=== PATIENT | female | born 1970 | race African-American/Black ===

== ENCOUNTER 2022-02-27 15:14 | Inpatient (IN) | payer MEDICARE, MEDICAID ==
[~2022-02-27] VITALS: Ht 162.6 cm; Wt 164.3 kg
[2022-02-27] MEDS ORDERED: INSULIN LANTUS (GLARGINE) 1 /0.01ml (100units/ml) SC ONE (16:00)
[2022-02-27] MEDS ORDERED: InsuLIN R (HUMAN) 100 UNITS in SODIUM CHL 0.9% 99 ML IV SCH ×2 (16:00→23:45)
[2022-02-27] MEDS: SODIUM CHLORIDE 0.9% 1,000 ML IV SCH ×3 (16:00→22:00)
[2022-02-27] MEDS ORDERED: DEXTROSE (50%) 50ML SYRG IV PRN ×2 (16:00→23:45)
[2022-02-27] MEDS: ACCU-CHEK COMFORT CURVE STRIP VI SCH ×5 (16:30→22:30)
[2022-02-27] MEDS ORDERED: MIDAZOLAM DRIP 50 mg/50mL 50 ML IV ONE (17:13)
[2022-02-27] MEDS ORDERED: ETOMIDATE (2MG/ML) 20ML VIAL IV ONE ×2 (17:13→17:15)
[2022-02-27] MEDS ORDERED: SUCCINYLCHOLINE CHLORIDE 20 MG/ML 10ML VIAL IV ONE ×2 (17:14→17:15)
[2022-02-27 17:20] VITALS: BP 111/54
[2022-02-27] MEDS ORDERED: PROPOFOL 100 ML IV ONE (17:34)
[2022-02-27 17:46] LABS: Basophils # (auto) 0.1 10 ^3/uL (0-0.2); Eosinophils # (auto) 0 10 ^3/uL (0-0.8); Eosinophils % (auto) 0.1 % (0.0-7.0); Monocytes # (auto) 1.1 10 ^3/uL (0-1.3)
[2022-02-27 17:47] LABS: Basophils % (auto) 0.5 % (0.0-2.0); Hematocrit 53.4 % (36.0-46.0); Hemoglobin 16.7 g/dL (12.2-16.2); Lymphocytes # (auto) 1.2 10 ^3/uL (0.4-5.4); Lymphocytes % (auto) 7.1 % (10.0-50.0); Mean Corpuscular Hemoglobin 28.8 pg (28.0-32.0); Mean Corpuscular Hgb Conc. 31.2 g/dL (32.0-36.0); Mean Corpuscular Volume 92.2 fL (80.0-100.0); Monocytes % (auto) 6.4 % (0.0-12.0); Neutrophils # (auto) 14.3 10 ^3/uL (1.6-8.6); Neutrophils % (auto) 85.9 % (37.0-80.0); Nucleated Red Blood Cells % 0.1 %; Red Cell Distribution Width 14.7 % (11.8-14.3); White Blood Cell 16.6 10^3/uL (4.4-10.8)
[2022-02-27] MEDS ORDERED: NOREPINEPHRINE 8 MG/250ML KIT 250 ML IV ONE ×2 (19:05→19:06)
[2022-02-27] MEDS: MIDAZOLAM DRIP 50 mg/50mL 50 ML IV SCH (19:35)
[2022-02-27] MEDS: PROPOFOL 100 ML IV SCH (19:35)
[2022-02-27] MEDS: NOREPINEPHRINE 8 MG/250ML KIT 250 ML IV SCH (19:37)
[2022-02-27 19:44] VITALS: BP 93/38
[2022-02-27] MEDS ORDERED: SODIUM CHLORIDE 0.9% 1,000 ML IV SCH (20:00)
[2022-02-27 21:03] VITALS: BP 92/35
[2022-02-27 22:02] VITALS: BP 97/37
[2022-02-27 23:01] LABS: Anion Gap 25 (5-15); BUN/Creatinine Ratio 9.4; Blood Alcohol < 3.0 mg/dL (0-5); Blood Urea Nitrogen 32 mg/dL (7-18); Calcium 8.5 mg/dL (8.5-10.1); Chloride 99 mmol/L (98-107); GFR African American 18 mL/min; GFR Non-African American 15 mL/min; Magnesium 2.5 mg/dL (1.6-2.6); Phosphorus 4.7 mg/dL (2.5-4.90); Sodium 132 mmol/L (136-145)
[2022-02-27 23:11] LABS: Carbon Dioxide 8 mmol/L (21-32)
[2022-02-27 23:12] LABS: Glucose 689 mg/dL (74-106); Potassium 5.9 mmol/L (3.5-5.1)
[2022-02-27 23:53] VITALS: BP 74/27
[2022-02-28] VITALS (11 sets, daily range): BP systolic 81–124; BP diastolic 42–67
[2022-02-28] MEDS: ACCU-CHEK COMFORT CURVE STRIP VI SCH ×16 (00:07→23:52)
[2022-02-28] MEDS: SODIUM BICARBONATE 50ML VIAL 100 ML in SOD CHL 0.45% 1,000 ML IV SCH ×2 (00:30→12:01)
[2022-02-28] MEDS ORDERED: NITROGLYCERIN 0.4 MG SL TAB SL PRN (00:30)
[2022-02-28] MEDS ORDERED: ONDANSETRON HCL 4 MG/2 ML VIAL IV PRN (00:30)
[2022-02-28] MEDS ORDERED: DEXTROSE (50%) 50ML SYRG IV PRN (00:30)
[2022-02-28] MEDS ORDERED: MORPHINE SULFATE INJ 2 MG/ml SYRG IV PRN (00:30)
[2022-02-28] MEDS: SODIUM CHLORIDE 0.9% 1,000 ML IV SCH ×6 (00:30→23:00)
[2022-02-28] MEDS ORDERED: SODIUM BICARBONATE 8.4% INJ 50ML SYRINGE ONE (01:02)
[2022-02-28] MEDS ORDERED: SODIUM BICARBONATE 8.4 % INJ 50ML VIAL IV ONE (01:15)
[2022-02-28 01:28] LABS: Urine Bacteria NONE SEEN /hpf (None Seen); Urine Blood 2+ /uL (Negative); Urine Mucus FEW (None Seen); Urine Specific Gravity 1.022 (1.001-1.035); Urine WBC 8 /hpf (0 - 5)
[2022-02-28] MEDS: InsuLIN R (HUMAN) 100 UNITS in SODIUM CHL 0.9% 99 ML IV SCH ×2 (01:33→03:00)
[2022-02-28] MEDS: ACETAMINOPHEN 325 MG TAB PO PRN ×2 (02:26→16:17)
[2022-02-28] MEDS ORDERED: InsuLIN REG 1unit/0.01ml Soln (100units/ml) ONE (02:55)
[2022-02-28] MEDS: NOREPINEPHRINE 8 MG/250ML KIT 250 ML IV SCH (04:34)
[2022-02-28 05:07] LABS: BUN/Creatinine Ratio 8.3; Calcium 8.1 mg/dL (8.5-10.1); Potassium 3.2 mmol/L (3.5-5.1)
[2022-02-28] MEDS: PHENYLEPHRINE IV 250 ML IV SCH ×3 (05:15→21:00)
[2022-02-28] MEDS ORDERED: SODIUM CHLORIDE 0.9% 1,000 ML IV ONE ×3 (08:00→18:00)
[2022-02-28] MEDS ORDERED: cefTRIAXone 1GM/50ML D5W 50 ML IV SCH ×2 (09:00)
[2022-02-28 09:07] LABS: BUN/Creatinine Ratio 7.8; Calcium 8.4 mg/dL (8.5-10.1); Potassium 3.6 mmol/L (3.5-5.1)
[2022-02-28] MEDS: VASOPRESSIN 50 UNITS in D5W 5% 247.5 ML IV SCH (09:37)
[2022-02-28] MEDS ORDERED: PANTOPRAZOLE 40 MG/10 ML VIAL INJ IV SCH (10:00)
[2022-02-28] MEDS ORDERED: INSULIN LANTUS (GLARGINE) 1 /0.01ml (100units/ml) SC SCH (10:00)
[2022-02-28 10:16] LABS: Lactic Acid w/Reflex 4.8 mmol/L (0.4-2.0)
[2022-02-28] MEDS ORDERED: VANCOMYCIN 1GM/250ML 250 ML IV ONE (14:15)
[2022-02-28] MEDS ORDERED: VANCOMYCIN PER PHARMACY 0 MG IV SCH (14:15)
[2022-02-28 15:35] LABS: Basophils # (auto) 0 10 ^3/uL (0-0.2); Basophils % (auto) 0.3 % (0.0-2.0); Eosinophils # (auto) 0 10 ^3/uL (0-0.8); Eosinophils % (auto) 0.3 % (0.0-7.0); Hematocrit 39.2 % (36.0-46.0); Hemoglobin 13.4 g/dL (12.2-16.2); Lymphocytes # (auto) 0.8 10 ^3/uL (0.4-5.4); Lymphocytes % (auto) 18.1 % (10.0-50.0); Mean Corpuscular Hemoglobin 28.8 pg (28.0-32.0); Mean Corpuscular Hgb Conc. 34.2 g/dL (32.0-36.0); Mean Corpuscular Volume 84.2 fL (80.0-100.0); Monocytes # (auto) 0.4 10 ^3/uL (0-1.3); Monocytes % (auto) 10.1 % (0.0-12.0); Neutrophils # (auto) 3.1 10 ^3/uL (1.6-8.6); Neutrophils % (auto) 71.2 % (37.0-80.0); Nucleated Red Blood Cells % 0.3 %; Red Blood Cells 4.66 10^6/uL (4.0-5.20); Red Cell Distribution Width 13.4 % (11.8-14.3); White Blood Cell 4.3 10^3/uL (4.4-10.8)
[2022-02-28 15:58] LABS: Albumin 2.3 g/dL (3.4-5.0); Calcium 7.4 mg/dL (8.5-10.1); Potassium 3.5 mmol/L (3.5-5.1)
[2022-02-28 16:02] LABS: BUN/Creatinine Ratio 8.3; Bilirubin, Total 0.5 mg/dL (0.2-1.0); Total Protein 4.8 g/dL (6.4-8.2)
[2022-02-28] MEDS: PIPERACILLIN-TAZOB 2.25GM 50 ML IV SCH ×2 (16:09→22:39)
[2022-02-28] MEDS ORDERED: HEPARIN SODIUM (PORCINE) 5000 UNITS/ML 1ML VIAL IV ONE ×2 (16:30→18:15)
[2022-02-28] MEDS ORDERED: HEPARIN DRIP/D5W 100UNITS/ML 250 ML IV SCH (16:30)
[2022-02-28 16:32] LABS: Magnesium 1.4 mg/dL (1.6-2.6)
[2022-02-28 17:50] LABS: Phosphorus 1.2 mg/dL (2.5-4.90)
[2022-02-28 18:09] LABS: INR 1.02 (0.9-1.15)
[2022-02-28 19:01] LABS: Albumin 2.1 g/dL (3.4-5.0); BUN/Creatinine Ratio 8.8; Calcium 7.4 mg/dL (8.5-10.1); Potassium 3.7 mmol/L (3.5-5.1)
[2022-02-28 19:04] LABS: Bilirubin, Total 0.5 mg/dL (0.2-1.0); Total Protein 5.2 g/dL (6.4-8.2)
[2022-02-28] MEDS: fentaNYL Drip 2500mCg/250mlNS 250 ML IV SCH (20:34)
[2022-02-28] MEDS: HEPARIN DRIP/D5W 100UNITS/ML 250 ML IV SCH (20:53)
[2022-02-28] MEDS: MIDAZOLAM DRIP 50 mg/50mL 50 ML IV SCH (22:14)
[2022-02-28] MEDS: PROPOFOL 100 ML IV SCH (22:39)
[2022-03-01] VITALS (74 sets, daily range): BP systolic 35–160; BP diastolic 11–114
[2022-03-01] MEDS: fentaNYL Drip 2500mCg/250mlNS 250 ML IV SCH ×3 (01:10→23:45)
[2022-03-01] MEDS: ACCU-CHEK COMFORT CURVE STRIP VI SCH ×14 (01:18→22:15)
[2022-03-01 01:26] LABS: BUN/Creatinine Ratio 9.3; Calcium 7.2 mg/dL (8.5-10.1); Potassium 4.2 mmol/L (3.5-5.1)
[2022-03-01 01:29] LABS: Bilirubin, Total 0.6 mg/dL (0.2-1.0); Total Protein 5.3 g/dL (6.4-8.2)
[2022-03-01] MEDS: InsuLIN R (HUMAN) 100 UNITS in SODIUM CHL 0.9% 99 ML IV SCH ×2 (01:30→03:31)
[2022-03-01] MEDS ORDERED: InsuLIN R (HUMAN) 100 UNITS in SODIUM CHL 0.9% 99 ML IV SCH (01:30)
[2022-03-01] MEDS: MIDAZOLAM DRIP 50 mg/50mL 50 ML IV SCH ×4 (03:02→23:30)
[2022-03-01] MEDS: PHENYLEPHRINE IV 250 ML IV SCH ×3 (03:02→06:31)
[2022-03-01] MEDS: SODIUM CHLORIDE 0.9% 1,000 ML IV SCH (03:19)
[2022-03-01] MEDS: NOREPINEPHRINE 8 MG/250ML KIT 250 ML IV SCH (03:20)
[2022-03-01] MEDS: HEPARIN DRIP/D5W 100UNITS/ML 250 ML IV SCH (06:00)
[2022-03-01] MEDS ORDERED: BUMETANIDE 2.5mg/10ml (0.25 mg/ml) INJ IV ONE (06:15)
[2022-03-01] MEDS: PIPERACILLIN-TAZOB 2.25GM 50 ML IV SCH ×3 (06:24→22:00)
[2022-03-01 08:18] LABS: Hematocrit 39.2 % (36.0-46.0); Hemoglobin 12.8 g/dL (12.2-16.2); Mean Corpuscular Hemoglobin 27.9 pg (28.0-32.0); Mean Corpuscular Hgb Conc. 32.6 g/dL (32.0-36.0); Mean Corpuscular Volume 85.5 fL (80.0-100.0); Red Blood Cells 4.59 10^6/uL (4.0-5.20); White Blood Cell 7.7 10^3/uL (4.4-10.8)
[2022-03-01 08:21] LABS: Calcium 6.9 mg/dL (8.5-10.1); Potassium 3.8 mmol/L (3.5-5.1)
[2022-03-01 08:25] LABS: BUN/Creatinine Ratio 8.9; Bilirubin, Total 0.5 mg/dL (0.2-1.0); Total Protein 5.3 g/dL (6.4-8.2)
[2022-03-01] MEDS: EPINEPHrine HCL 250 ML IV SCH ×2 (08:45→22:20)
[2022-03-01 09:11] LABS: Basophils % (manual) 0 (0.0-2.0); Metamyelocytes % 0
[2022-03-01 09:12] LABS: Blast Cells 0; Myelocytes % 0; Promyelocytes % 0; Reactive Lymphocytes 0
[2022-03-01] MEDS ORDERED: SODIUM BICARBONATE 8.4 % INJ 50ML VIAL IV ONE ×2 (09:15→16:00)
[2022-03-01] MEDS ORDERED: PHENYLEPHRINE IV 250 ML IV ONE (09:52)
[2022-03-01] MEDS ORDERED: PANTOPRAZOLE 80 MG in SODIUM CHL 0.9% 100 ML IV ONE (10:00)
[2022-03-01 10:30] LABS: Partial Thromboplastin Time < 20.0 sec (24.6-33.4)
[2022-03-01] MEDS ORDERED: SODIUM CHLORIDE 0.9% 1,000 ML IV SCH (10:30)
[2022-03-01 10:31] LABS: INR 1.31 (0.9-1.15); Partial Thromboplastin Time < 20.0 sec (24.6-33.4)
[2022-03-01] MEDS: NOREPINEPHRINE BITARTRATE 32 MG in SODIUM CHL 0.9% 218 ML IV SCH (12:26)
[2022-03-01] MEDS: PHENYLEPHRINE INJ 80 MG in SODIUM CHL 0.9% 242 ML IV SCH (12:27)
[2022-03-01] MEDS: PANTOPRAZOLE 40mg/50ML NS AE 50 ML IV SCH ×3 (12:27→22:30)
[2022-03-01] MEDS: VASOPRESSIN 50 UNITS in D5W 5% 247.5 ML IV SCH (13:39)
[2022-03-01] MEDS: VANCOMYCIN 1GM/250ML 250 ML IV SCH (13:48)
[2022-03-01 15:08] LABS: Hemoglobin 12.4 g/dL (12.2-16.2); Mean Corpuscular Hemoglobin 28.4 pg (28.0-32.0); Mean Corpuscular Hgb Conc. 33.5 g/dL (32.0-36.0); Red Blood Cells 4.35 10^6/uL (4.0-5.20); Red Cell Distribution Width 13.8 % (11.8-14.3); White Blood Cell 6.6 10^3/uL (4.4-10.8)
[2022-03-01 15:11] LABS: Basophils % (manual) 0 (0.0-2.0); Blast Cells 0; Eosinophils % (manual) 0 (0-7); Promyelocytes % 0; Reactive Lymphocytes 0
[2022-03-01 15:42] LABS: Albumin 1.7 g/dL (3.4-5.0); Calcium 6.7 mg/dL (8.5-10.1); Potassium 3.7 mmol/L (3.5-5.1)
[2022-03-01 15:45] LABS: BUN/Creatinine Ratio 9.4
[2022-03-01 15:47] LABS: Bilirubin, Total 0.7 mg/dL (0.2-1.0); Total Protein 4.4 g/dL (6.4-8.2)
[2022-03-01] MEDS: PROPOFOL 100 ML IV SCH ×3 (16:17→23:30)
[2022-03-01] MEDS: MAGNESIUM SULFATE 1GM/100ML 100 ML IV SCH ×2 (16:20→18:10)
[2022-03-01] MEDS: D5W/SOD CHL 0.45% 1,000 ML IV SCH (18:05)
[2022-03-01 18:48] LABS: Band Neutrophils % (manual) 48; Eosinophils % (manual) 1 (0-7); Lymphocytes % (manual) 28 (10.0-50.0); Monocytes % (manual) 2 (0-12)
[2022-03-01 19:35] LABS: Band Neutrophils % (manual) 45; Lymphocytes % (manual) 28 (10.0-50.0); Metamyelocytes % 1; Monocytes % (manual) 5 (0-12); Myelocytes % 3
[2022-03-01 22:22] LABS: Hematocrit 34.7 % (36.0-46.0); Hemoglobin 11.7 g/dL (12.2-16.2); Mean Corpuscular Hemoglobin 28.4 pg (28.0-32.0); Mean Corpuscular Hgb Conc. 33.8 g/dL (32.0-36.0); Red Blood Cells 4.13 10^6/uL (4.0-5.20); Red Cell Distribution Width 14.1 % (11.8-14.3)
[2022-03-01 22:33] LABS: Basophils % (manual) 0 (0.0-2.0); Blast Cells 0; Eosinophils % (manual) 0 (0-7); Promyelocytes % 0; Reactive Lymphocytes 0
[2022-03-01 22:37] LABS: Albumin 1.5 g/dL (3.4-5.0); Calcium 6.3 mg/dL (8.5-10.1); Potassium 3.5 mmol/L (3.5-5.1)
[2022-03-01 22:40] LABS: BUN/Creatinine Ratio 9.2; Bilirubin, Total 0.7 mg/dL (0.2-1.0); Total Protein 4.2 g/dL (6.4-8.2)
[2022-03-01 23:56] LABS: Band Neutrophils % (manual) 29; Lymphocytes % (manual) 21 (10.0-50.0); Metamyelocytes % 2; Monocytes % (manual) 8 (0-12); Myelocytes % 5
[2022-03-02] VITALS (97 sets, daily range): BP systolic 77–140; BP diastolic 26–62
[2022-03-02] MEDS: ACCU-CHEK COMFORT CURVE STRIP VI SCH ×8 (01:41→18:00)
[2022-03-02] MEDS: InsuLIN R (HUMAN) 100 UNITS in SODIUM CHL 0.9% 99 ML IV SCH ×3 (01:57→06:07)
[2022-03-02] MEDS: PHENYLEPHRINE INJ 80 MG in SODIUM CHL 0.9% 242 ML IV SCH ×2 (02:20→08:25)
[2022-03-02] MEDS: PROPOFOL 100 ML IV SCH ×6 (02:32→18:26)
[2022-03-02 04:08] LABS: Mean Corpuscular Hemoglobin 28.5 pg (28.0-32.0); Mean Corpuscular Hgb Conc. 33.8 g/dL (32.0-36.0)
[2022-03-02 04:11] LABS: Hematocrit 33.9 % (36.0-46.0); Hemoglobin 11.5 g/dL (12.2-16.2); Mean Corpuscular Volume 84.3 fL (80.0-100.0); Red Blood Cells 4.02 10^6/uL (4.0-5.20); Red Cell Distribution Width 14.1 % (11.8-14.3); White Blood Cell 6.7 10^3/uL (4.4-10.8)
[2022-03-02 04:26] LABS: Basophils % (manual) 0 (0.0-2.0); Blast Cells 0; Metamyelocytes % 0; Myelocytes % 0; Promyelocytes % 0; Reactive Lymphocytes 0
[2022-03-02 04:38] LABS: Albumin 1.4 g/dL (3.4-5.0); BUN/Creatinine Ratio 8.7; Calcium 6.2 mg/dL (8.5-10.1); Potassium 3.3 mmol/L (3.5-5.1)
[2022-03-02 04:41] LABS: Bilirubin, Total 0.7 mg/dL (0.2-1.0); Total Protein 4.2 g/dL (6.4-8.2)
[2022-03-02 05:18] LABS: Magnesium 1.6 mg/dL (1.6-2.6)
[2022-03-02] MEDS: PANTOPRAZOLE 40mg/50ML NS AE 50 ML IV SCH ×5 (06:00→21:00)
[2022-03-02] MEDS: D5W/SOD CHL 0.45% 1,000 ML IV SCH ×3 (06:08→22:30)
[2022-03-02] MEDS: PIPERACILLIN-TAZOB 2.25GM 50 ML IV SCH (06:10)
[2022-03-02] MEDS: VANCOMYCIN 1GM/250ML 250 ML IV SCH (08:11)
[2022-03-02] MEDS: VASOPRESSIN 50 UNITS in D5W 5% 247.5 ML IV SCH (08:12)
[2022-03-02] MEDS: MIDAZOLAM DRIP 50 mg/50mL 50 ML IV SCH ×4 (08:14→17:16)
[2022-03-02 08:55] LABS: Band Neutrophils % (manual) 48; Eosinophils % (manual) 1 (0-7); Lymphocytes % (manual) 28 (10.0-50.0); Monocytes % (manual) 3 (0-12)
[2022-03-02] MEDS ORDERED: MAGNESIUM SULFATE 1GM/100ML 100 ML IV SCH ×2 (09:00→15:00)
[2022-03-02] MEDS: NOREPINEPHRINE BITARTRATE 32 MG in SODIUM CHL 0.9% 218 ML IV SCH (09:30)
[2022-03-02] MEDS: MAGNESIUM SULFATE 1GM/100ML 100 ML IV SCH ×2 (10:00→11:34)
[2022-03-02] MEDS: POTASSIUM CHL 20MEQ/100ML 100 ML IV SCH ×2 (10:15→12:47)
[2022-03-02] MEDS ORDERED: INSULIN LANTUS (GLARGINE) 1 /0.01ml (100units/ml) SC SCH ×2 (11:30→22:00)
[2022-03-02] MEDS ORDERED: DEXTROSE (50%) 50ML SYRG IV PRN ×3 (11:30→18:30)
[2022-03-02] MEDS ORDERED: InsuLIN REG 1unit/0.01ml Soln (100units/ml) SC ONE (12:00)
[2022-03-02] MEDS ORDERED: ACCU-CHEK COMFORT CURVE STRIP VI SCH ×2 (12:00→18:00)
[2022-03-02] MEDS ORDERED: InsuLIN REG 1unit/0.01ml Soln (100units/ml) SC SCH ×3 (12:00→22:00)
[2022-03-02] MEDS ORDERED: MEROPENEM 500MG IVPB 50 ML IV ONE (13:30)
[2022-03-02] MEDS ORDERED: INSULIN LANTUS (GLARGINE) 1 /0.01ml (100units/ml) SC ONE (14:45)
[2022-03-02] MEDS: HYDROCORTISONE SOD SUCC 100 MG/2ML INJ VIAL IV SCH ×3 (14:53→23:30)
[2022-03-02] MEDS ORDERED: POTASSIUM CHL 20MEQ/100ML 100 ML IV SCH (15:00)
[2022-03-02] MEDS: EPINEPHrine HCL 250 ML IV SCH (16:22)
[2022-03-02] MEDS: fentaNYL Drip 2500mCg/250mlNS 250 ML IV SCH (18:28)
[2022-03-02] MEDS: InsuLIN REG 1unit/0.01ml Soln (100units/ml) SC SCH (19:26)
[2022-03-02 22:09] LABS: Basophils # (auto) 0 10 ^3/uL (0-0.2); Basophils % (auto) 0.6 % (0.0-2.0); Eosinophils # (auto) 0 10 ^3/uL (0-0.8); Eosinophils % (auto) 0.2 % (0.0-7.0); Hematocrit 33.3 % (36.0-46.0); Hemoglobin 11.6 g/dL (12.2-16.2); Lymphocytes # (auto) 0.8 10 ^3/uL (0.4-5.4); Lymphocytes % (auto) 11.6 % (10.0-50.0); Mean Corpuscular Hemoglobin 29.9 pg (28.0-32.0); Mean Corpuscular Hgb Conc. 34.9 g/dL (32.0-36.0); Mean Corpuscular Volume 85.7 fL (80.0-100.0); Monocytes # (auto) 0.6 10 ^3/uL (0-1.3); Monocytes % (auto) 8.5 % (0.0-12.0); Neutrophils # (auto) 5.7 10 ^3/uL (1.6-8.6); Neutrophils % (auto) 79.1 % (37.0-80.0); Red Blood Cells 3.88 10^6/uL (4.0-5.20); Red Cell Distribution Width 14.5 % (11.8-14.3); White Blood Cell 7.2 10^3/uL (4.4-10.8)
[2022-03-02 22:28] LABS: Albumin 1.5 g/dL (3.4-5.0); Calcium 6.7 mg/dL (8.5-10.1); Magnesium 1.7 mg/dL (1.6-2.6); Potassium 4.4 mmol/L (3.5-5.1)
[2022-03-02 22:30] LABS: BUN/Creatinine Ratio 8.6
[2022-03-02] MEDS: HEPARIN SODIUM (PORCINE) 5000 UNITS/ML 1ML VIAL SC SCH (22:30)
[2022-03-02 22:54] LABS: Bilirubin, Total 0.6 mg/dL (0.2-1.0); Total Protein 5.2 g/dL (6.4-8.2)
[2022-03-03] VITALS (95 sets, daily range): BP systolic 81–214; BP diastolic 40–114
[2022-03-03] MEDS: InsuLIN REG 1unit/0.01ml Soln (100units/ml) SC SCH ×6 (02:19→17:51)
[2022-03-03] MEDS: VANCOMYCIN 1GM/250ML 250 ML IV SCH (02:20)
[2022-03-03] MEDS: ACCU-CHEK COMFORT CURVE STRIP VI SCH ×4 (02:20→17:49)
[2022-03-03 05:14] LABS: Mean Corpuscular Hemoglobin 29.3 pg (28.0-32.0); Mean Corpuscular Hgb Conc. 33.7 g/dL (32.0-36.0)
[2022-03-03 05:15] LABS: Hematocrit 33.3 % (36.0-46.0); Hemoglobin 11.2 g/dL (12.2-16.2); Mean Corpuscular Volume 86.8 fL (80.0-100.0); Red Blood Cells 3.83 10^6/uL (4.0-5.20); Red Cell Distribution Width 14.9 % (11.8-14.3); White Blood Cell 7.6 10^3/uL (4.4-10.8)
[2022-03-03] MEDS: HYDROCORTISONE SOD SUCC 100 MG/2ML INJ VIAL IV SCH ×4 (05:26→23:03)
[2022-03-03 05:31] LABS: Albumin 1.5 g/dL (3.4-5.0); BUN/Creatinine Ratio 8.9; Calcium 6.6 mg/dL (8.5-10.1); Magnesium 1.7 mg/dL (1.6-2.6); Potassium 4.3 mmol/L (3.5-5.1)
[2022-03-03 05:34] LABS: Bilirubin, Total 0.6 mg/dL (0.2-1.0); Total Protein 5.3 g/dL (6.4-8.2)
[2022-03-03] MEDS ORDERED: ALBUMIN 25% 100 ML IV ONE (06:00)
[2022-03-03 06:30] LABS: Basophils % (manual) 0 (0.0-2.0); Blast Cells 0; Eosinophils % (manual) 0 (0-7); Myelocytes % 0; Promyelocytes % 0; Reactive Lymphocytes 0
[2022-03-03] MEDS: PANTOPRAZOLE 40mg/50ML NS AE 50 ML IV SCH ×5 (06:30→18:44)
[2022-03-03] MEDS: VASOPRESSIN 50 UNITS in D5W 5% 247.5 ML IV SCH (08:00)
[2022-03-03] MEDS: D5W/SOD CHL 0.45% 1,000 ML IV SCH (08:30)
[2022-03-03] MEDS: MIDAZOLAM DRIP 50 mg/50mL 50 ML IV SCH ×4 (08:33→18:43)
[2022-03-03] MEDS: NOREPINEPHRINE BITARTRATE 32 MG in SODIUM CHL 0.9% 218 ML IV SCH ×2 (09:30→16:26)
[2022-03-03 09:31] LABS: Band Neutrophils % (manual) 6; Lymphocytes % (manual) 13 (10.0-50.0); Metamyelocytes % 1; Monocytes % (manual) 8 (0-12)
[2022-03-03] MEDS ORDERED: InsuLIN REG 1unit/0.01ml Soln (100units/ml) SC SCH (10:00)
[2022-03-03] MEDS ORDERED: SODIUM CHLORIDE 0.9% 1,000 ML IV SCH (10:00)
[2022-03-03] MEDS: HEPARIN SODIUM (PORCINE) 5000 UNITS/ML 1ML VIAL SC SCH ×2 (10:05→22:04)
[2022-03-03] MEDS ORDERED: SODIUM BICARBONATE 50ML VIAL 150 ML in D5W 5% 1,000 ML IV SCH (10:45)
[2022-03-03] MEDS ORDERED: DEXTROSE (50%) 50ML SYRG IV PRN (11:00)
[2022-03-03] MEDS: INSULIN LANTUS (GLARGINE) 1 /0.01ml (100units/ml) SC SCH ×2 (11:03→22:08)
[2022-03-03] MEDS: PHENYLEPHRINE INJ 80 MG in SODIUM CHL 0.9% 242 ML IV SCH (11:50)
[2022-03-03] MEDS: MEROPENEM 500MG IVPB 50 ML IV SCH (11:51)
[2022-03-03] MEDS ORDERED: BUMETANIDE 2.5mg/10ml (0.25 mg/ml) INJ IV ONE (12:00)
[2022-03-03] MEDS ORDERED: SODIUM BICARBONATE 8.4 % INJ 50ML VIAL IV ONE ×3 (12:00→17:30)
[2022-03-03] MEDS: fentaNYL Drip 2500mCg/250mlNS 250 ML IV SCH (14:17)
[2022-03-03] MEDS ORDERED: MAGNESIUM SULFATE 1GM/100ML 100 ML IV ONE (15:45)
[2022-03-03] MEDS: ALBUMIN 25% 50 ML IV SCH ×2 (15:56→23:05)
[2022-03-03 16:18] LABS: BUN/Creatinine Ratio 9.6; Calcium 6.8 mg/dL (8.5-10.1); Potassium 3.3 mmol/L (3.5-5.1)
[2022-03-03] MEDS: FUROSEMIDE INJECTION 100 MG in SODIUM CHL 0.9% 100 ML IV SCH ×2 (17:48→22:19)
[2022-03-03] MEDS ORDERED: SOD CHL 0.9%/ KCL 20MEQ 1,000 ML IV SCH (21:15)
[2022-03-03] MEDS: POTASSIUM CHL 20MEQ/100ML 100 ML IV SCH ×2 (21:58→22:15)
[2022-03-04] VITALS (106 sets, daily range): BP systolic 92–145; BP diastolic 38–81
[2022-03-04] MEDS: InsuLIN REG 1unit/0.01ml Soln (100units/ml) SC SCH ×6 (00:06→17:49)
[2022-03-04] MEDS: ACCU-CHEK COMFORT CURVE STRIP VI SCH ×4 (00:08→17:40)
[2022-03-04] MEDS: FUROSEMIDE INJECTION 100 MG in SODIUM CHL 0.9% 100 ML IV SCH ×5 (02:40→21:13)
[2022-03-04] MEDS: PANTOPRAZOLE 40mg/50ML NS AE 50 ML IV SCH ×5 (02:40→22:39)
[2022-03-04 03:13] LABS: Hemoglobin 11.1 g/dL (12.2-16.2)
[2022-03-04 03:15] LABS: Mean Corpuscular Hemoglobin 27.9 pg (28.0-32.0); Mean Corpuscular Hgb Conc. 33.6 g/dL (32.0-36.0); Red Blood Cells 3.98 10^6/uL (4.0-5.20); Red Cell Distribution Width 14.1 % (11.8-14.3)
[2022-03-04 03:20] LABS: Basophils % (manual) 0 (0.0-2.0); Blast Cells 0; Eosinophils % (manual) 0 (0-7); Myelocytes % 0; Promyelocytes % 0; Reactive Lymphocytes 0
[2022-03-04 03:26] LABS: Albumin 2.1 g/dL (3.4-5.0); BUN/Creatinine Ratio 9.2; Magnesium 2.1 mg/dL (1.6-2.6)
[2022-03-04 03:28] LABS: Bilirubin, Total 0.8 mg/dL (0.2-1.0); Total Protein 5.2 g/dL (6.4-8.2)
[2022-03-04 03:51] LABS: Potassium 2.7 mmol/L (3.5-5.1)
[2022-03-04] MEDS ORDERED: POTASSIUM CHL 20MEQ/100ML 100 ML IV ONE (04:29)
[2022-03-04] MEDS ORDERED: SOD CHL 0.9%/ KCL 40MEQ 1,000 ML IV SCH (04:30)
[2022-03-04] MEDS: HYDROCORTISONE SOD SUCC 100 MG/2ML INJ VIAL IV SCH ×4 (05:31→22:39)
[2022-03-04 06:20] LABS: Band Neutrophils % (manual) 10; Lymphocytes % (manual) 17 (10.0-50.0); Metamyelocytes % 1; Monocytes % (manual) 11 (0-12)
[2022-03-04] MEDS: POTASSIUM CHL 20MEQ/100ML 100 ML IV SCH ×6 (08:00→22:39)
[2022-03-04] MEDS: VASOPRESSIN 50 UNITS in D5W 5% 247.5 ML IV SCH (08:00)
[2022-03-04] MEDS: PROPOFOL 100 ML IV SCH ×2 (08:15→21:14)
[2022-03-04] MEDS: EPINEPHrine HCL 250 ML IV SCH (08:15)
[2022-03-04] MEDS: PHENYLEPHRINE INJ 80 MG in SODIUM CHL 0.9% 242 ML IV SCH (08:17)
[2022-03-04] MEDS: ALBUMIN 25% 50 ML IV SCH (08:21)
[2022-03-04] MEDS: MIDAZOLAM DRIP 50 mg/50mL 50 ML IV SCH ×5 (09:41→21:14)
[2022-03-04] MEDS: MEROPENEM 500MG IVPB 50 ML IV SCH (09:43)
[2022-03-04] MEDS: HEPARIN SODIUM (PORCINE) 5000 UNITS/ML 1ML VIAL SC SCH ×2 (09:43→21:16)
[2022-03-04] MEDS: INSULIN LANTUS (GLARGINE) 1 /0.01ml (100units/ml) SC SCH ×2 (09:44→21:20)
[2022-03-04] MEDS: fentaNYL Drip 2500mCg/250mlNS 250 ML IV SCH (13:15)
[2022-03-04] MEDS: NOREPINEPHRINE BITARTRATE 32 MG in SODIUM CHL 0.9% 218 ML IV SCH (16:41)
[2022-03-05] VITALS (106 sets, daily range): BP systolic 67–155; BP diastolic 33–85
[2022-03-05] MEDS: ACCU-CHEK COMFORT CURVE STRIP VI SCH ×4 (00:54→17:55)
[2022-03-05] MEDS: InsuLIN REG 1unit/0.01ml Soln (100units/ml) SC SCH ×4 (00:57→17:54)
[2022-03-05] MEDS: fentaNYL Drip 2500mCg/250mlNS 250 ML IV SCH ×2 (00:57→12:46)
[2022-03-05] MEDS: POTASSIUM CHL 20MEQ/100ML 100 ML IV SCH ×3 (01:00→22:50)
[2022-03-05] MEDS: MIDAZOLAM DRIP 50 mg/50mL 50 ML IV SCH ×5 (01:01→15:11)
[2022-03-05] MEDS: FUROSEMIDE INJECTION 100 MG in SODIUM CHL 0.9% 100 ML IV SCH ×2 (03:18→10:14)
[2022-03-05] MEDS: PANTOPRAZOLE 40mg/50ML NS AE 50 ML IV SCH (03:38)
[2022-03-05] MEDS: HYDROCORTISONE SOD SUCC 100 MG/2ML INJ VIAL IV SCH (05:42)
[2022-03-05] MEDS: VASOPRESSIN 50 UNITS in D5W 5% 247.5 ML IV SCH (08:00)
[2022-03-05] MEDS: EPINEPHrine HCL 250 ML IV SCH (08:15)
[2022-03-05 08:48] LABS: Hematocrit 35.8 % (36.0-46.0); Hemoglobin 12.3 g/dL (12.2-16.2); Mean Corpuscular Hemoglobin 28.7 pg (28.0-32.0); Mean Corpuscular Hgb Conc. 34.2 g/dL (32.0-36.0); Mean Corpuscular Volume 83.8 fL (80.0-100.0); Red Blood Cells 4.28 10^6/uL (4.0-5.20); Red Cell Distribution Width 14.4 % (11.8-14.3); White Blood Cell 11.2 10^3/uL (4.4-10.8)
[2022-03-05 08:57] LABS: Basophils % (manual) 0 (0.0-2.0); Blast Cells 0; Eosinophils % (manual) 0 (0-7); Promyelocytes % 0; Reactive Lymphocytes 0
[2022-03-05 09:12] LABS: Albumin 2.3 g/dL (3.4-5.0); Calcium 8.3 mg/dL (8.5-10.1); Magnesium 2.3 mg/dL (1.6-2.6); Potassium 3.6 mmol/L (3.5-5.1)
[2022-03-05 09:15] LABS: Bilirubin, Total 0.8 mg/dL (0.2-1.0); Total Protein 5.5 g/dL (6.4-8.2)
[2022-03-05 09:20] LABS: BUN/Creatinine Ratio 11.5
[2022-03-05] MEDS: PHENYLEPHRINE INJ 80 MG in SODIUM CHL 0.9% 242 ML IV SCH (09:30)
[2022-03-05] MEDS: INSULIN LANTUS (GLARGINE) 1 /0.01ml (100units/ml) SC SCH ×2 (10:00→22:00)
[2022-03-05] MEDS: MEROPENEM 500MG IVPB 50 ML IV SCH (10:11)
[2022-03-05] MEDS: PANTOPRAZOLE 40 MG/10 ML VIAL INJ IV SCH ×2 (10:12→22:03)
[2022-03-05] MEDS: HEPARIN SODIUM (PORCINE) 5000 UNITS/ML 1ML VIAL SC SCH ×2 (10:13→22:06)
[2022-03-05 10:39] LABS: Band Neutrophils % (manual) 4; Lymphocytes % (manual) 22 (10.0-50.0); Metamyelocytes % 4; Monocytes % (manual) 7 (0-12); Myelocytes % 1
[2022-03-05] MEDS ORDERED: DEXTROSE (50%) 50ML SYRG IV PRN (11:30)
[2022-03-05] MEDS ORDERED: ceFAZolin 1GM/50ML 50 ML IV ONE (11:45)
[2022-03-05] MEDS ORDERED: POTASSIUM CHL 20MEQ/100ML 100 ML IV ONE (12:00)
[2022-03-05] MEDS: ALBUMIN 25% 100 ML IV SCH ×2 (12:39→15:05)
[2022-03-05] MEDS: ceFAZolin 1GM/50ML 50 ML IV SCH (20:37)
[2022-03-05] MEDS: PROPOFOL 100 ML IV SCH (22:00)
[2022-03-06] VITALS (107 sets, daily range): BP systolic 80–172; BP diastolic 26–124
[2022-03-06] MEDS: ACCU-CHEK COMFORT CURVE STRIP VI SCH ×4 (00:19→18:02)
[2022-03-06] MEDS: POTASSIUM CHL 20MEQ/100ML 100 ML IV SCH ×8 (00:47→19:09)
[2022-03-06] MEDS: NOREPINEPHRINE BITARTRATE 32 MG in SODIUM CHL 0.9% 218 ML IV SCH (00:54)
[2022-03-06] MEDS: fentaNYL Drip 2500mCg/250mlNS 250 ML IV SCH ×2 (02:46→15:49)
[2022-03-06 04:27] LABS: Hematocrit 32.7 % (36.0-46.0); Hemoglobin 11.2 g/dL (12.2-16.2); Mean Corpuscular Hemoglobin 28.7 pg (28.0-32.0); Mean Corpuscular Hgb Conc. 34.2 g/dL (32.0-36.0); Mean Corpuscular Volume 84.1 fL (80.0-100.0); Red Blood Cells 3.89 10^6/uL (4.0-5.20); Red Cell Distribution Width 13.9 % (11.8-14.3); White Blood Cell 13.9 10^3/uL (4.4-10.8)
[2022-03-06] MEDS: ceFAZolin 1GM/50ML 50 ML IV SCH ×3 (04:27→21:47)
[2022-03-06 04:35] LABS: Albumin 2.8 g/dL (3.4-5.0); Calcium 8.7 mg/dL (8.5-10.1); Magnesium 2.2 mg/dL (1.6-2.6); Potassium 3.1 mmol/L (3.5-5.1)
[2022-03-06 04:36] LABS: Basophils % (manual) 0 (0.0-2.0); Blast Cells 0; Eosinophils % (manual) 0 (0-7); Metamyelocytes % 0; Myelocytes % 0; Promyelocytes % 0; Reactive Lymphocytes 0
[2022-03-06 05:06] LABS: BUN/Creatinine Ratio 12.6; Bilirubin, Total 0.7 mg/dL (0.2-1.0); Total Protein 5.6 g/dL (6.4-8.2)
[2022-03-06 05:11] LABS: Band Neutrophils % (manual) 1; Lymphocytes % (manual) 59 (10.0-50.0); Monocytes % (manual) 9 (0-12)
[2022-03-06] MEDS: InsuLIN REG 1unit/0.01ml Soln (100units/ml) SC SCH ×4 (05:38→18:06)
[2022-03-06] MEDS: D5W 5% 1,000 ML IV SCH ×2 (07:37→22:23)
[2022-03-06] MEDS: VASOPRESSIN 50 UNITS in D5W 5% 247.5 ML IV SCH (08:00)
[2022-03-06] MEDS: EPINEPHrine HCL 250 ML IV SCH (08:15)
[2022-03-06] MEDS: PHENYLEPHRINE INJ 80 MG in SODIUM CHL 0.9% 242 ML IV SCH (09:30)
[2022-03-06] MEDS ORDERED: FUROSEMIDE 100 MG/10ML VIAL IV SCH (10:00)
[2022-03-06] MEDS: INSULIN LANTUS (GLARGINE) 1 /0.01ml (100units/ml) SC SCH ×2 (10:00→21:53)
[2022-03-06] MEDS: MEROPENEM 500MG IVPB 50 ML IV SCH (10:19)
[2022-03-06] MEDS: PANTOPRAZOLE 40 MG/10 ML VIAL INJ IV SCH ×2 (10:20→21:52)
[2022-03-06] MEDS: HEPARIN SODIUM (PORCINE) 5000 UNITS/ML 1ML VIAL SC SCH ×2 (10:20→21:58)
[2022-03-06] MEDS ORDERED: Glucerna 1.2 Cal 1Liter BOTTLE GT SCH (13:15)
[2022-03-06 15:19] LABS: INR 1.08 (0.9-1.15)
[2022-03-06] MEDS ORDERED: AMIODARONE HCL 200 MG TAB PO ONE (15:30)
[2022-03-06] MEDS ORDERED: LIDOCAINE 1% (LOCAL ANESTH.) PF 5ml SDV ID ONE (17:00)
[2022-03-06] MEDS: AMIODARONE HCL 200 MG TAB PO SCH (21:53)
[2022-03-06] MEDS: MAGNESIUM OXIDE 400 MG TAB PO SCH (21:59)
[2022-03-06] MEDS: MIDAZOLAM DRIP 50 mg/50mL 50 ML IV SCH (21:59)
[2022-03-06] MEDS: SODIUM CHLOR 0.9% PF (SALINE LOCK) 10ML VIAL/SYR IV SCH (21:59)
[2022-03-06] MEDS: PROPOFOL 100 ML IV SCH (21:59)
[2022-03-07] VITALS (104 sets, daily range): BP systolic 86–129; BP diastolic 48–79
[2022-03-07] MEDS: ACCU-CHEK COMFORT CURVE STRIP VI SCH ×4 (00:27→18:09)
[2022-03-07] MEDS: POTASSIUM CHL 20MEQ/100ML 100 ML IV SCH ×5 (00:27→15:30)
[2022-03-07] MEDS: InsuLIN REG 1unit/0.01ml Soln (100units/ml) SC SCH ×4 (00:32→18:12)
[2022-03-07] MEDS: ceFAZolin 1GM/50ML 50 ML IV SCH ×3 (04:03→20:00)
[2022-03-07 06:30] LABS: Hematocrit 33.8 % (36.0-46.0); Hemoglobin 11.9 g/dL (12.2-16.2); Mean Corpuscular Hemoglobin 29.6 pg (28.0-32.0); Mean Corpuscular Hgb Conc. 35.2 g/dL (32.0-36.0); Mean Corpuscular Volume 84.3 fL (80.0-100.0); Red Blood Cells 4.02 10^6/uL (4.0-5.20); Red Cell Distribution Width 14.2 % (11.8-14.3); White Blood Cell 13.8 10^3/uL (4.4-10.8)
[2022-03-07 06:32] LABS: Albumin 2.5 g/dL (3.4-5.0); Calcium 8.8 mg/dL (8.5-10.1); Magnesium 2.5 mg/dL (1.6-2.6); Potassium 3.6 mmol/L (3.5-5.1)
[2022-03-07 06:37] LABS: Bilirubin, Total 0.9 mg/dL (0.2-1.0); Total Protein 5.3 g/dL (6.4-8.2)
[2022-03-07 06:50] LABS: Basophils % (manual) 0 (0.0-2.0); Blast Cells 0; Eosinophils % (manual) 0 (0-7); Metamyelocytes % 0; Myelocytes % 0; Promyelocytes % 0; Reactive Lymphocytes 0
[2022-03-07] MEDS ORDERED: POTASSIUM CHL 20MEQ/100ML 100 ML IV ONE (07:00)
[2022-03-07] MEDS: VASOPRESSIN 50 UNITS in D5W 5% 247.5 ML IV SCH (08:00)
[2022-03-07] MEDS: EPINEPHrine HCL 250 ML IV SCH (08:15)
[2022-03-07] MEDS: fentaNYL Drip 2500mCg/250mlNS 250 ML IV SCH (08:19)
[2022-03-07] MEDS: PHENYLEPHRINE INJ 80 MG in SODIUM CHL 0.9% 242 ML IV SCH (09:30)
[2022-03-07] MEDS: HEPARIN SODIUM (PORCINE) 5000 UNITS/ML 1ML VIAL SC SCH (10:07)
[2022-03-07] MEDS: PANTOPRAZOLE 40 MG/10 ML VIAL INJ IV SCH ×2 (10:08→22:19)
[2022-03-07] MEDS: AMIODARONE HCL 200 MG TAB PO SCH ×2 (10:08→22:20)
[2022-03-07] MEDS: MAGNESIUM OXIDE 400 MG TAB PO SCH ×2 (10:08→22:00)
[2022-03-07] MEDS: SODIUM CHLOR 0.9% PF (SALINE LOCK) 10ML VIAL/SYR IV SCH ×2 (10:09→22:00)
[2022-03-07] MEDS: D5W 5% 1,000 ML IV SCH ×2 (10:09→22:34)
[2022-03-07] MEDS: NOREPINEPHRINE BITARTRATE 32 MG in SODIUM CHL 0.9% 218 ML IV SCH (10:10)
[2022-03-07] MEDS: INSULIN LANTUS (GLARGINE) 1 /0.01ml (100units/ml) SC SCH ×2 (10:12→22:00)
[2022-03-07 13:13] LABS: Band Neutrophils % (manual) 29; Lymphocytes % (manual) 23 (10.0-50.0); Monocytes % (manual) 17 (0-12)
[2022-03-07] MEDS: FUROSEMIDE INJECTION 100 MG in D5W 5% 100 ML IV SCH (18:09)
[2022-03-07] MEDS: MIDAZOLAM DRIP 50 mg/50mL 50 ML IV SCH (22:00)
[2022-03-07] MEDS: PROPOFOL 100 ML IV SCH (22:00)
[2022-03-07] MEDS: ENOXAPARIN SOD 40 MG/0.4 ML SYRINGE SC SCH (22:19)
[2022-03-08] VITALS (97 sets, daily range): BP systolic 72–165; BP diastolic 37–94
[2022-03-08] MEDS: FUROSEMIDE INJECTION 100 MG in D5W 5% 100 ML IV SCH ×4 (02:35→22:43)
[2022-03-08 03:39] LABS: Basophils # (auto) 0 10 ^3/uL (0-0.2); Basophils % (auto) 0.4 % (0.0-2.0); Eosinophils # (auto) 0.1 10 ^3/uL (0-0.8); Hematocrit 32.9 % (36.0-46.0); Hemoglobin 10.9 g/dL (12.2-16.2); Lymphocytes # (auto) 2.6 10 ^3/uL (0.4-5.4); Lymphocytes % (auto) 23.8 % (10.0-50.0); Mean Corpuscular Hemoglobin 28.8 pg (28.0-32.0); Mean Corpuscular Hgb Conc. 33.2 g/dL (32.0-36.0); Mean Corpuscular Volume 86.6 fL (80.0-100.0); Monocytes # (auto) 0.9 10 ^3/uL (0-1.3); Monocytes % (auto) 8.1 % (0.0-12.0); Neutrophils # (auto) 7.3 10 ^3/uL (1.6-8.6); Neutrophils % (auto) 66.7 % (37.0-80.0); Nucleated Red Blood Cells % 0.7 %; Red Cell Distribution Width 14.1 % (11.8-14.3); White Blood Cell 10.9 10^3/uL (4.4-10.8)
[2022-03-08 03:49] LABS: Calcium 8.5 mg/dL (8.5-10.1); Magnesium 2.3 mg/dL (1.6-2.6); Potassium 3.4 mmol/L (3.5-5.1)
[2022-03-08] MEDS: ceFAZolin 1GM/50ML 50 ML IV SCH ×3 (04:00→19:54)
[2022-03-08] MEDS: InsuLIN REG 1unit/0.01ml Soln (100units/ml) SC SCH ×5 (05:30→23:39)
[2022-03-08] MEDS: ACCU-CHEK COMFORT CURVE STRIP VI SCH ×5 (05:30→23:37)
[2022-03-08] MEDS: D5W 5% 1,000 ML IV SCH ×2 (06:56→12:20)
[2022-03-08] MEDS: VASOPRESSIN 50 UNITS in D5W 5% 247.5 ML IV SCH (08:00)
[2022-03-08] MEDS: EPINEPHrine HCL 250 ML IV SCH (08:15)
[2022-03-08] MEDS: PHENYLEPHRINE INJ 80 MG in SODIUM CHL 0.9% 242 ML IV SCH (09:30)
[2022-03-08] MEDS: NOREPINEPHRINE BITARTRATE 32 MG in SODIUM CHL 0.9% 218 ML IV SCH (09:30)
[2022-03-08] MEDS: AMIODARONE HCL 200 MG TAB PO SCH ×2 (09:59→22:04)
[2022-03-08] MEDS: PANTOPRAZOLE 40 MG/10 ML VIAL INJ IV SCH ×2 (09:59→22:04)
[2022-03-08] MEDS: SODIUM CHLOR 0.9% PF (SALINE LOCK) 10ML VIAL/SYR IV SCH ×2 (10:00→22:04)
[2022-03-08] MEDS: MAGNESIUM OXIDE 400 MG TAB PO SCH ×2 (10:00→22:00)
[2022-03-08] MEDS: ENOXAPARIN SOD 40 MG/0.4 ML SYRINGE SC SCH ×2 (10:01→22:04)
[2022-03-08] MEDS: INSULIN LANTUS (GLARGINE) 1 /0.01ml (100units/ml) SC SCH ×2 (10:11→23:39)
[2022-03-08] MEDS ORDERED: POTASSIUM EFFERVESENT TAB 25 MEQ GT ONE (14:15)
[2022-03-08] MEDS: fentaNYL Drip 2500mCg/250mlNS 250 ML IV SCH (19:00)
[2022-03-08] MEDS: MIDAZOLAM DRIP 50 mg/50mL 50 ML IV SCH (22:00)
[2022-03-08] MEDS: PROPOFOL 100 ML IV SCH (22:00)
[2022-03-09] VITALS (99 sets, daily range): BP systolic 89–167; BP diastolic 34–76
[2022-03-09] MEDS: D5W 5% 1,000 ML IV SCH (01:40)
[2022-03-09] MEDS: ceFAZolin 1GM/50ML 50 ML IV SCH ×3 (04:07→19:59)
[2022-03-09 04:17] LABS: Basophils # (auto) 0.1 10 ^3/uL (0-0.2); Basophils % (auto) 0.9 % (0.0-2.0); Eosinophils # (auto) 0.1 10 ^3/uL (0-0.8); Eosinophils % (auto) 0.7 % (0.0-7.0); Hematocrit 31.5 % (36.0-46.0); Hemoglobin 10.6 g/dL (12.2-16.2); Lymphocytes % (auto) 19.9 % (10.0-50.0); Mean Corpuscular Hemoglobin 29.1 pg (28.0-32.0); Mean Corpuscular Hgb Conc. 33.8 g/dL (32.0-36.0); Mean Corpuscular Volume 86.2 fL (80.0-100.0); Monocytes # (auto) 0.7 10 ^3/uL (0-1.3); Monocytes % (auto) 6.5 % (0.0-12.0); Neutrophils # (auto) 7.4 10 ^3/uL (1.6-8.6); Nucleated Red Blood Cells % 0.3 %; Red Blood Cells 3.65 10^6/uL (4.0-5.20); Red Cell Distribution Width 14.3 % (11.8-14.3); White Blood Cell 10.3 10^3/uL (4.4-10.8)
[2022-03-09 04:41] LABS: BUN/Creatinine Ratio 18.1; Calcium 8.7 mg/dL (8.5-10.1); Magnesium 2.5 mg/dL (1.6-2.6); Potassium 3.5 mmol/L (3.5-5.1)
[2022-03-09] MEDS: InsuLIN REG 1unit/0.01ml Soln (100units/ml) SC SCH ×3 (05:36→17:25)
[2022-03-09] MEDS: ACCU-CHEK COMFORT CURVE STRIP VI SCH ×3 (05:36→17:35)
[2022-03-09] MEDS: VASOPRESSIN 50 UNITS in D5W 5% 247.5 ML IV SCH (08:00)
[2022-03-09] MEDS: EPINEPHrine HCL 250 ML IV SCH (08:15)
[2022-03-09] MEDS ORDERED: POTASSIUM EFFERVESENT TAB 25 MEQ PO ONE (09:00)
[2022-03-09] MEDS: NOREPINEPHRINE BITARTRATE 32 MG in SODIUM CHL 0.9% 218 ML IV SCH (09:30)
[2022-03-09] MEDS: PHENYLEPHRINE INJ 80 MG in SODIUM CHL 0.9% 242 ML IV SCH (09:30)
[2022-03-09] MEDS: ENOXAPARIN SOD 40 MG/0.4 ML SYRINGE SC SCH ×2 (09:42→21:16)
[2022-03-09] MEDS: FUROSEMIDE INJECTION 100 MG in D5W 5% 100 ML IV SCH ×3 (09:42→22:15)
[2022-03-09] MEDS: AMIODARONE HCL 200 MG TAB PO SCH ×2 (09:43→21:15)
[2022-03-09] MEDS: MAGNESIUM OXIDE 400 MG TAB PO SCH ×2 (09:43→21:15)
[2022-03-09] MEDS: SODIUM CHLOR 0.9% PF (SALINE LOCK) 10ML VIAL/SYR IV SCH ×2 (09:43→21:10)
[2022-03-09] MEDS: PANTOPRAZOLE 40 MG/10 ML VIAL INJ IV SCH ×2 (09:43→21:09)
[2022-03-09] MEDS: INSULIN LANTUS (GLARGINE) 1 /0.01ml (100units/ml) SC SCH ×2 (09:44→21:22)
[2022-03-09] MEDS: fentaNYL Drip 2500mCg/250mlNS 250 ML IV SCH (10:39)
[2022-03-09] MEDS: FREE WATER GT SCH ×3 (17:22→21:10)
[2022-03-09] MEDS: MIDAZOLAM DRIP 50 mg/50mL 50 ML IV SCH (21:16)
[2022-03-09] MEDS: PROPOFOL 100 ML IV SCH (21:16)
[2022-03-10] VITALS (99 sets, daily range): BP systolic 91–170; BP diastolic 53–96
[2022-03-10] MEDS: ACCU-CHEK COMFORT CURVE STRIP VI SCH ×5 (00:22→23:37)
[2022-03-10] MEDS: InsuLIN REG 1unit/0.01ml Soln (100units/ml) SC SCH ×5 (00:24→23:38)
[2022-03-10] MEDS: FREE WATER GT SCH ×6 (02:23→23:26)
[2022-03-10] MEDS: ceFAZolin 1GM/50ML 50 ML IV SCH ×3 (04:02→21:22)
[2022-03-10 04:29] LABS: Basophils # (auto) 0 10 ^3/uL (0-0.2); Basophils % (auto) 0.2 % (0.0-2.0); Eosinophils # (auto) 0.1 10 ^3/uL (0-0.8); Eosinophils % (auto) 0.7 % (0.0-7.0); Hematocrit 32.1 % (36.0-46.0); Hemoglobin 10.9 g/dL (12.2-16.2); Lymphocytes # (auto) 1.9 10 ^3/uL (0.4-5.4); Lymphocytes % (auto) 18.9 % (10.0-50.0); Mean Corpuscular Hemoglobin 29.2 pg (28.0-32.0); Monocytes # (auto) 0.8 10 ^3/uL (0-1.3); Monocytes % (auto) 7.5 % (0.0-12.0); Neutrophils # (auto) 7.4 10 ^3/uL (1.6-8.6); Neutrophils % (auto) 72.7 % (37.0-80.0); Nucleated Red Blood Cells % 0.2 %; Red Blood Cells 3.74 10^6/uL (4.0-5.20); Red Cell Distribution Width 13.9 % (11.8-14.3); White Blood Cell 10.2 10^3/uL (4.4-10.8)
[2022-03-10 04:34] LABS: Calcium 9.3 mg/dL (8.5-10.1); Magnesium 2.3 mg/dL (1.6-2.6); Potassium 3.7 mmol/L (3.5-5.1)
[2022-03-10 04:36] LABS: BUN/Creatinine Ratio 20.2
[2022-03-10] MEDS: EPINEPHrine HCL 250 ML IV SCH (07:35)
[2022-03-10] MEDS: VASOPRESSIN 50 UNITS in D5W 5% 247.5 ML IV SCH (07:35)
[2022-03-10] MEDS: PHENYLEPHRINE INJ 80 MG in SODIUM CHL 0.9% 242 ML IV SCH (07:35)
[2022-03-10] MEDS: NOREPINEPHRINE BITARTRATE 32 MG in SODIUM CHL 0.9% 218 ML IV SCH (09:30)
[2022-03-10] MEDS: PANTOPRAZOLE 40 MG/10 ML VIAL INJ IV SCH ×2 (09:44→23:25)
[2022-03-10] MEDS: SODIUM CHLOR 0.9% PF (SALINE LOCK) 10ML VIAL/SYR IV SCH ×2 (09:44→23:27)
[2022-03-10] MEDS: AMIODARONE HCL 200 MG TAB PO SCH ×2 (09:45→23:25)
[2022-03-10] MEDS: ENOXAPARIN SOD 40 MG/0.4 ML SYRINGE SC SCH ×2 (09:45→23:25)
[2022-03-10] MEDS: INSULIN LANTUS (GLARGINE) 1 /0.01ml (100units/ml) SC SCH ×2 (10:24→23:36)
[2022-03-10] MEDS ORDERED: MIDODRINE HCL 10 MG TAB PO ONE ×2 (11:00)
[2022-03-10] MEDS ORDERED: guaiFENesin-DM 100/10mg/5ml SYR PO PRN (11:00)
[2022-03-10] MEDS ORDERED: guaiFENesin-DM 100/10mg/5ml SYR PO ONE (11:00)
[2022-03-10] MEDS: MAGNESIUM OXIDE 400 MG TAB PO SCH ×2 (11:58→23:35)
[2022-03-10] MEDS ORDERED: MIDODRINE HCL 10 MG TAB PO SCH (12:00)
[2022-03-10] MEDS: MIDODRINE HCL 10 MG TAB PO SCH ×2 (12:18→17:09)
[2022-03-10] MEDS: fentaNYL Drip 2500mCg/250mlNS 250 ML IV SCH (21:21)
[2022-03-10] MEDS: MIDAZOLAM DRIP 50 mg/50mL 50 ML IV SCH (22:00)
[2022-03-10] MEDS: PROPOFOL 100 ML IV SCH (22:00)
[2022-03-11] VITALS (106 sets, daily range): BP systolic 88–150; BP diastolic 48–97
[2022-03-11] MEDS: FREE WATER GT SCH ×6 (02:00→22:03)
[2022-03-11] MEDS: ceFAZolin 1GM/50ML 50 ML IV SCH ×3 (04:00→20:37)
[2022-03-11 04:07] LABS: Basophils # (auto) 0 10 ^3/uL (0-0.2); Basophils % (auto) 0.3 % (0.0-2.0); Eosinophils # (auto) 0.1 10 ^3/uL (0-0.8); Eosinophils % (auto) 0.7 % (0.0-7.0); Hematocrit 31.9 % (36.0-46.0); Hemoglobin 10.6 g/dL (12.2-16.2); Lymphocytes # (auto) 1.9 10 ^3/uL (0.4-5.4); Lymphocytes % (auto) 19.7 % (10.0-50.0); Mean Corpuscular Hemoglobin 28.9 pg (28.0-32.0); Mean Corpuscular Hgb Conc. 33.4 g/dL (32.0-36.0); Mean Corpuscular Volume 86.4 fL (80.0-100.0); Monocytes # (auto) 0.8 10 ^3/uL (0-1.3); Monocytes % (auto) 7.8 % (0.0-12.0); Neutrophils % (auto) 71.5 % (37.0-80.0); Nucleated Red Blood Cells % 0.2 %; Red Blood Cells 3.69 10^6/uL (4.0-5.20); Red Cell Distribution Width 13.7 % (11.8-14.3); White Blood Cell 9.8 10^3/uL (4.4-10.8)
[2022-03-11 04:21] LABS: BUN/Creatinine Ratio 20.3; Calcium 9.4 mg/dL (8.5-10.1); Magnesium 2.5 mg/dL (1.6-2.6); Potassium 3.4 mmol/L (3.5-5.1)
[2022-03-11] MEDS: FUROSEMIDE INJECTION 100 MG in D5W 5% 100 ML IV SCH ×2 (05:00→12:54)
[2022-03-11] MEDS: InsuLIN REG 1unit/0.01ml Soln (100units/ml) SC SCH ×3 (07:09→17:45)
[2022-03-11] MEDS: ACCU-CHEK COMFORT CURVE STRIP VI SCH ×3 (07:10→17:32)
[2022-03-11] MEDS: MIDODRINE HCL 10 MG TAB PO SCH ×3 (07:10→17:48)
[2022-03-11] MEDS: VASOPRESSIN 50 UNITS in D5W 5% 247.5 ML IV SCH (08:00)
[2022-03-11] MEDS: EPINEPHrine HCL 250 ML IV SCH (08:15)
[2022-03-11] MEDS: POTASSIUM CHL 20MEQ/100ML 100 ML IV SCH ×2 (09:00→09:03)
[2022-03-11] MEDS: PHENYLEPHRINE INJ 80 MG in SODIUM CHL 0.9% 242 ML IV SCH (09:04)
[2022-03-11] MEDS: NOREPINEPHRINE BITARTRATE 32 MG in SODIUM CHL 0.9% 218 ML IV SCH (09:04)
[2022-03-11] MEDS: PANTOPRAZOLE 40 MG/10 ML VIAL INJ IV SCH ×2 (09:28→22:02)
[2022-03-11] MEDS: AMIODARONE HCL 200 MG TAB PO SCH ×2 (09:28→22:02)
[2022-03-11] MEDS: SODIUM CHLOR 0.9% PF (SALINE LOCK) 10ML VIAL/SYR IV SCH ×2 (09:28→21:49)
[2022-03-11] MEDS: ENOXAPARIN SOD 40 MG/0.4 ML SYRINGE SC SCH ×2 (09:28→22:02)
[2022-03-11] MEDS: MAGNESIUM OXIDE 400 MG TAB PO SCH ×2 (09:28→22:02)
[2022-03-11] MEDS: INSULIN LANTUS (GLARGINE) 1 /0.01ml (100units/ml) SC SCH ×2 (09:29→22:08)
[2022-03-11] MEDS ORDERED: Vital AF 1.2 Cal 1 liter bottle GT SCH (12:30)
[2022-03-11] MEDS: PROPOFOL 100 ML IV SCH (22:00)
[2022-03-11] MEDS: MIDAZOLAM DRIP 50 mg/50mL 50 ML IV SCH (22:00)
[2022-03-12] VITALS (106 sets, daily range): BP systolic 83–176; BP diastolic 25–102
[2022-03-12] MEDS: InsuLIN REG 1unit/0.01ml Soln (100units/ml) SC SCH ×4 (00:02→17:57)
[2022-03-12] MEDS: FREE WATER GT SCH ×6 (02:00→22:24)
[2022-03-12 04:06] LABS: Basophils # (auto) 0 10 ^3/uL (0-0.2); Eosinophils # (auto) 0.1 10 ^3/uL (0-0.8); Monocytes # (auto) 0.7 10 ^3/uL (0-1.3); Nucleated Red Blood Cells % 0.2 %; White Blood Cell 9.4 10^3/uL (4.4-10.8)
[2022-03-12 04:09] LABS: Basophils % (auto) 0.4 % (0.0-2.0); Hematocrit 30.7 % (36.0-46.0); Hemoglobin 10.1 g/dL (12.2-16.2); Lymphocytes % (auto) 21.4 % (10.0-50.0); Mean Corpuscular Hemoglobin 28.9 pg (28.0-32.0); Mean Corpuscular Volume 87.7 fL (80.0-100.0); Monocytes % (auto) 7.8 % (0.0-12.0); Neutrophils # (auto) 6.5 10 ^3/uL (1.6-8.6); Neutrophils % (auto) 69.4 % (37.0-80.0); Red Cell Distribution Width 13.8 % (11.8-14.3)
[2022-03-12] MEDS: ceFAZolin 1GM/50ML 50 ML IV SCH ×3 (04:24→20:10)
[2022-03-12 04:30] LABS: BUN/Creatinine Ratio 21.5; Calcium 9.2 mg/dL (8.5-10.1); Magnesium 2.9 mg/dL (1.6-2.6); Potassium 3.9 mmol/L (3.5-5.1)
[2022-03-12] MEDS: fentaNYL Drip 2500mCg/250mlNS 250 ML IV SCH ×2 (04:52→19:00)
[2022-03-12] MEDS: ACCU-CHEK COMFORT CURVE STRIP VI SCH ×4 (06:17→17:57)
[2022-03-12] MEDS: MIDODRINE HCL 10 MG TAB PO SCH ×3 (06:17→17:57)
[2022-03-12] MEDS: VASOPRESSIN 50 UNITS in D5W 5% 247.5 ML IV SCH (08:00)
[2022-03-12] MEDS: EPINEPHrine HCL 250 ML IV SCH (08:15)
[2022-03-12] MEDS: FUROSEMIDE INJECTION 100 MG in D5W 5% 100 ML IV SCH (08:31)
[2022-03-12] MEDS: NOREPINEPHRINE BITARTRATE 32 MG in SODIUM CHL 0.9% 218 ML IV SCH (09:29)
[2022-03-12] MEDS: PHENYLEPHRINE INJ 80 MG in SODIUM CHL 0.9% 242 ML IV SCH (09:29)
[2022-03-12] MEDS: PANTOPRAZOLE 40 MG/10 ML VIAL INJ IV SCH ×2 (09:40→22:23)
[2022-03-12] MEDS: AMIODARONE HCL 200 MG TAB PO SCH ×2 (09:40→22:23)
[2022-03-12] MEDS: SODIUM CHLOR 0.9% PF (SALINE LOCK) 10ML VIAL/SYR IV SCH ×2 (09:41→22:24)
[2022-03-12] MEDS: MAGNESIUM OXIDE 400 MG TAB PO SCH ×2 (09:42→22:23)
[2022-03-12] MEDS: ENOXAPARIN SOD 40 MG/0.4 ML SYRINGE SC SCH ×2 (09:42→22:23)
[2022-03-12] MEDS: INSULIN LANTUS (GLARGINE) 1 /0.01ml (100units/ml) SC SCH ×2 (09:50→22:29)
[2022-03-12] MEDS ORDERED: POTASSIUM CHL 20MEQ/100ML 100 ML IV ONE (14:45)
[2022-03-12] MEDS: PROPOFOL 100 ML IV SCH (22:00)
[2022-03-12] MEDS: MIDAZOLAM DRIP 50 mg/50mL 50 ML IV SCH (22:00)
[2022-03-13] VITALS (95 sets, daily range): BP systolic 89–175; BP diastolic 44–88
[2022-03-13] MEDS: ACCU-CHEK COMFORT CURVE STRIP VI SCH ×4 (00:23→17:37)
[2022-03-13] MEDS: InsuLIN REG 1unit/0.01ml Soln (100units/ml) SC SCH ×4 (00:29→17:45)
[2022-03-13] MEDS: PROPOFOL 100 ML IV SCH (01:02)
[2022-03-13] MEDS: FREE WATER GT SCH ×6 (02:17→21:38)
[2022-03-13 02:59] LABS: Eosinophils # (auto) 0.1 10 ^3/uL (0-0.8); Eosinophils % (auto) 0.8 % (0.0-7.0); Lymphocytes # (auto) 1.3 10 ^3/uL (0.4-5.4); Mean Corpuscular Volume 88.3 fL (80.0-100.0); Monocytes # (auto) 0.7 10 ^3/uL (0-1.3); Nucleated Red Blood Cells % 0.1 %
[2022-03-13 03:01] LABS: Basophils # (auto) 0 10 ^3/uL (0-0.2); Basophils % (auto) 0.4 % (0.0-2.0); Hematocrit 28.2 % (36.0-46.0); Hemoglobin 9.7 g/dL (12.2-16.2); Lymphocytes % (auto) 15.7 % (10.0-50.0); Mean Corpuscular Hemoglobin 30.3 pg (28.0-32.0); Mean Corpuscular Hgb Conc. 34.3 g/dL (32.0-36.0); Monocytes % (auto) 8.7 % (0.0-12.0); Neutrophils % (auto) 74.4 % (37.0-80.0); Red Cell Distribution Width 13.8 % (11.8-14.3)
[2022-03-13 03:15] LABS: BUN/Creatinine Ratio 23.5; Calcium 8.8 mg/dL (8.5-10.1); Magnesium 2.8 mg/dL (1.6-2.6); Potassium 3.3 mmol/L (3.5-5.1)
[2022-03-13] MEDS: ceFAZolin 1GM/50ML 50 ML IV SCH ×2 (04:30→12:19)
[2022-03-13] MEDS ORDERED: POTASSIUM CHL 20MEQ/100ML 100 ML IV ONE (04:45)
[2022-03-13] MEDS: MIDODRINE HCL 10 MG TAB PO SCH ×3 (06:27→17:46)
[2022-03-13] MEDS: VASOPRESSIN 50 UNITS in D5W 5% 247.5 ML IV SCH (08:00)
[2022-03-13] MEDS: EPINEPHrine HCL 250 ML IV SCH (08:15)
[2022-03-13] MEDS: PHENYLEPHRINE INJ 80 MG in SODIUM CHL 0.9% 242 ML IV SCH (09:30)
[2022-03-13] MEDS: PANTOPRAZOLE 40 MG/10 ML VIAL INJ IV SCH ×2 (10:22→21:36)
[2022-03-13] MEDS: ENOXAPARIN SOD 40 MG/0.4 ML SYRINGE SC SCH ×2 (10:22→21:36)
[2022-03-13] MEDS: AMIODARONE HCL 200 MG TAB PO SCH ×2 (10:23→21:37)
[2022-03-13] MEDS: MAGNESIUM OXIDE 400 MG TAB PO SCH ×2 (10:23→21:37)
[2022-03-13] MEDS: SODIUM CHLOR 0.9% PF (SALINE LOCK) 10ML VIAL/SYR IV SCH ×2 (10:24→21:37)
[2022-03-13] MEDS: INSULIN LANTUS (GLARGINE) 1 /0.01ml (100units/ml) SC SCH ×2 (10:28→21:49)
[2022-03-13] MEDS ORDERED: MORPHINE SULFATE INJ 2 MG/ml SYRG IV PRN (16:00)
[2022-03-13] MEDS: fentaNYL Drip 2500mCg/250mlNS 250 ML IV SCH (17:23)
[2022-03-13] MEDS: NOREPINEPHRINE BITARTRATE 32 MG in SODIUM CHL 0.9% 218 ML IV SCH (17:26)
[2022-03-13] MEDS: FUROSEMIDE 40 MG/4 ML VIAL IV SCH (21:36)
[2022-03-13] MEDS: MIDAZOLAM DRIP 50 mg/50mL 50 ML IV SCH (21:38)
[2022-03-14] VITALS (89 sets, daily range): BP systolic 81–165; BP diastolic 40–81
[2022-03-14] MEDS: ACCU-CHEK COMFORT CURVE STRIP VI SCH ×5 (00:36→23:42)
[2022-03-14] MEDS: InsuLIN REG 1unit/0.01ml Soln (100units/ml) SC SCH ×5 (00:36→23:43)
[2022-03-14] MEDS ORDERED: POTASSIUM CHL 20MEQ/100ML 100 ML IV ONE (01:30)
[2022-03-14] MEDS: FREE WATER GT SCH ×3 (02:07→10:04)
[2022-03-14 04:10] LABS: Eosinophils # (auto) 0.1 10 ^3/uL (0-0.8); Eosinophils % (auto) 0.8 % (0.0-7.0)
[2022-03-14 04:14] LABS: Basophils # (auto) 0.1 10 ^3/uL (0-0.2); Basophils % (auto) 0.6 % (0.0-2.0); Hematocrit 29.1 % (36.0-46.0); Hemoglobin 9.9 g/dL (12.2-16.2); Lymphocytes # (auto) 2.4 10 ^3/uL (0.4-5.4); Lymphocytes % (auto) 22.5 % (10.0-50.0); Mean Corpuscular Hemoglobin 29.7 pg (28.0-32.0); Mean Corpuscular Hgb Conc. 34.1 g/dL (32.0-36.0); Mean Corpuscular Volume 86.9 fL (80.0-100.0); Monocytes % (auto) 9.6 % (0.0-12.0); Neutrophils # (auto) 7.2 10 ^3/uL (1.6-8.6); Neutrophils % (auto) 66.5 % (37.0-80.0); Nucleated Red Blood Cells % 0.1 %; Red Blood Cells 3.34 10^6/uL (4.0-5.20); Red Cell Distribution Width 13.4 % (11.8-14.3); White Blood Cell 10.8 10^3/uL (4.4-10.8)
[2022-03-14] MEDS: MIDODRINE HCL 10 MG TAB PO SCH ×3 (06:10→17:30)
[2022-03-14] MEDS: VASOPRESSIN 50 UNITS in D5W 5% 247.5 ML IV SCH (08:00)
[2022-03-14] MEDS: EPINEPHrine HCL 250 ML IV SCH (08:15)
[2022-03-14 08:35] LABS: Potassium 3.4 mmol/L (3.5-5.1)
[2022-03-14 08:36] LABS: Magnesium 2.8 mg/dL (1.6-2.6)
[2022-03-14] MEDS: PHENYLEPHRINE INJ 80 MG in SODIUM CHL 0.9% 242 ML IV SCH (09:30)
[2022-03-14] MEDS: NOREPINEPHRINE BITARTRATE 32 MG in SODIUM CHL 0.9% 218 ML IV SCH (09:30)
[2022-03-14] MEDS: PANTOPRAZOLE 40 MG/10 ML VIAL INJ IV SCH ×2 (09:59→21:51)
[2022-03-14] MEDS: ENOXAPARIN SOD 40 MG/0.4 ML SYRINGE SC SCH ×2 (09:59→22:00)
[2022-03-14] MEDS: FUROSEMIDE 40 MG/4 ML VIAL IV SCH ×2 (09:59→21:52)
[2022-03-14] MEDS: MAGNESIUM OXIDE 400 MG TAB PO SCH (10:01)
[2022-03-14] MEDS: SODIUM CHLOR 0.9% PF (SALINE LOCK) 10ML VIAL/SYR IV SCH ×2 (10:03→21:52)
[2022-03-14] MEDS: AMIODARONE HCL 200 MG TAB PO SCH ×2 (10:04→22:00)
[2022-03-14] MEDS: INSULIN LANTUS (GLARGINE) 1 /0.01ml (100units/ml) SC SCH ×2 (10:38→22:04)
[2022-03-14] MEDS ORDERED: FUROSEMIDE 40 MG/4 ML VIAL IV ONE ×2 (12:15)
[2022-03-14] MEDS: fentaNYL Drip 2500mCg/250mlNS 250 ML IV SCH (17:31)
[2022-03-14] MEDS: PROPOFOL 100 ML IV SCH (22:00)
[2022-03-14] MEDS: MIDAZOLAM DRIP 50 mg/50mL 50 ML IV SCH (22:00)
[2022-03-15] VITALS (94 sets, daily range): BP systolic 90–137; BP diastolic 55–117
[2022-03-15] MEDS: POTASSIUM CHL 20MEQ/100ML 100 ML IV SCH ×2 (01:45→04:00)
[2022-03-15 04:45] LABS: Urine Bacteria FEW /hpf (None Seen); Urine Blood 3+ /uL (Negative); Urine Hyaline Cast MANY /lpf (0 - 2); Urine Mucus FEW (None Seen); Urine Specific Gravity 1.015 (1.001-1.035); Urine WBC 82 /hpf (0 - 5); Urine WBC Clumps PRESENT /hpf (None Seen)
[2022-03-15] MEDS: ACCU-CHEK COMFORT CURVE STRIP VI SCH ×4 (05:57→23:52)
[2022-03-15] MEDS: MIDODRINE HCL 10 MG TAB PO SCH ×3 (05:57→18:31)
[2022-03-15] MEDS: InsuLIN REG 1unit/0.01ml Soln (100units/ml) SC SCH ×4 (05:57→23:52)
[2022-03-15 07:28] LABS: Basophils % (auto) 0.5 % (0.0-2.0); Eosinophils # (auto) 0.1 10 ^3/uL (0-0.8); Hemoglobin 9.9 g/dL (12.2-16.2); Monocytes # (auto) 0.9 10 ^3/uL (0-1.3); Red Cell Distribution Width 13.7 % (11.8-14.3)
[2022-03-15 07:30] LABS: Basophils # (auto) 0.1 10 ^3/uL (0-0.2); Eosinophils % (auto) 1.1 % (0.0-7.0); Hematocrit 29.5 % (36.0-46.0); Lymphocytes # (auto) 1.6 10 ^3/uL (0.4-5.4); Lymphocytes % (auto) 15.3 % (10.0-50.0); Mean Corpuscular Hemoglobin 29.6 pg (28.0-32.0); Mean Corpuscular Hgb Conc. 33.7 g/dL (32.0-36.0); Mean Corpuscular Volume 87.9 fL (80.0-100.0); Monocytes % (auto) 8.9 % (0.0-12.0); Neutrophils # (auto) 7.5 10 ^3/uL (1.6-8.6); Neutrophils % (auto) 74.2 % (37.0-80.0); Nucleated Red Blood Cells % 0.2 %; Red Blood Cells 3.35 10^6/uL (4.0-5.20); White Blood Cell 10.2 10^3/uL (4.4-10.8)
[2022-03-15 07:52] LABS: Alanine Aminotransferase 18 U/L (13-56); Albumin 2.8 g/dL (3.4-5.0); Anion Gap 9 (5-15); BUN/Creatinine Ratio 26.8; Calcium 9.5 mg/dL (8.5-10.1); Carbon Dioxide 32 mmol/L (21-32); Chloride 105 mmol/L (98-107); GFR African American 19 mL/min; GFR Non-African American 16 mL/min; Glucose 140 mg/dL (74-106); Magnesium 2.9 mg/dL (1.6-2.6); Potassium 3.6 mmol/L (3.5-5.1); Sodium 146 mmol/L (136-145)
[2022-03-15 07:55] LABS: Alkaline Phosphatase 130 U/L (45-117); Aspartate Aminotransferase 42 U/L (15-37); Bilirubin, Total 0.8 mg/dL (0.2-1.0); Total Protein 7.1 g/dL (6.4-8.2)
[2022-03-15 08:00] LABS: Blood Urea Nitrogen 86 mg/dL (7-18)
[2022-03-15 08:09] LABS: % Iron Saturation 15.3 % (15-50)
[2022-03-15 08:49] LABS: Phosphorus 5.2 mg/dL (2.5-4.90)
[2022-03-15] MEDS: ENOXAPARIN SOD 40 MG/0.4 ML SYRINGE SC SCH (10:00)
[2022-03-15] MEDS: PANTOPRAZOLE 40 MG/10 ML VIAL INJ IV SCH ×2 (10:59→21:30)
[2022-03-15] MEDS: SODIUM CHLOR 0.9% PF (SALINE LOCK) 10ML VIAL/SYR IV SCH ×2 (11:00→21:31)
[2022-03-15] MEDS: AMIODARONE HCL 200 MG TAB PO SCH ×3 (11:07→21:30)
[2022-03-15] MEDS: INSULIN LANTUS (GLARGINE) 1 /0.01ml (100units/ml) SC SCH ×2 (11:12→21:33)
[2022-03-15] MEDS: FUROSEMIDE 40 MG/4 ML VIAL IV SCH (13:12)
[2022-03-15] MEDS ORDERED: SODIUM FERR GLUC 62.5MG/5ML 125 MG in SODIUM CHL 0.9% 100 ML IV ONE (14:15)
[2022-03-15] MEDS: fentaNYL Drip 2500mCg/250mlNS 250 ML IV SCH (18:31)
[2022-03-15 19:09] LABS: Urine Bacteria FEW /hpf (None Seen); Urine Blood 3+ /uL (Negative); Urine Hyaline Cast FEW /lpf (0 - 2); Urine Specific Gravity 1.012 (1.001-1.035); Urine WBC 54 /hpf (0 - 5)
[2022-03-15] MEDS: PROPOFOL 100 ML IV SCH (21:31)
[2022-03-15] MEDS: MIDAZOLAM DRIP 50 mg/50mL 50 ML IV SCH (21:31)
[2022-03-16] VITALS (92 sets, daily range): BP systolic 90–165; BP diastolic 46–95
[2022-03-16 04:22] LABS: Basophils # (auto) 0.1 10 ^3/uL (0-0.2); Basophils % (auto) 0.6 % (0.0-2.0); Eosinophils # (auto) 0.1 10 ^3/uL (0-0.8); Eosinophils % (auto) 1.2 % (0.0-7.0); Hematocrit 36.7 % (36.0-46.0); Lymphocytes # (auto) 1.9 10 ^3/uL (0.4-5.4); Lymphocytes % (auto) 19.7 % (10.0-50.0); Mean Corpuscular Hemoglobin 29.3 pg (28.0-32.0); Mean Corpuscular Hgb Conc. 32.8 g/dL (32.0-36.0); Mean Corpuscular Volume 89.3 fL (80.0-100.0); Monocytes % (auto) 10.4 % (0.0-12.0); Neutrophils # (auto) 6.6 10 ^3/uL (1.6-8.6); Neutrophils % (auto) 68.1 % (37.0-80.0); Nucleated Red Blood Cells % 0.2 %; Red Blood Cells 4.11 10^6/uL (4.0-5.20); Red Cell Distribution Width 13.7 % (11.8-14.3); White Blood Cell 9.7 10^3/uL (4.4-10.8)
[2022-03-16] MEDS: InsuLIN REG 1unit/0.01ml Soln (100units/ml) SC SCH ×4 (06:00→23:47)
[2022-03-16] MEDS: ACCU-CHEK COMFORT CURVE STRIP VI SCH ×4 (06:04→23:46)
[2022-03-16] MEDS: MIDODRINE HCL 10 MG TAB PO SCH ×3 (06:04→17:29)
[2022-03-16 07:06] LABS: Calcium 10.2 mg/dL (8.5-10.1); Potassium 3.3 mmol/L (3.5-5.1)
[2022-03-16 07:15] LABS: BUN/Creatinine Ratio 27.5; Magnesium 2.9 mg/dL (1.6-2.6)
[2022-03-16] MEDS ORDERED: POTASSIUM EFFERVESENT TAB 25 MEQ PO ONE (08:00)
[2022-03-16] MEDS: cefTRIAXone 1GM/50ML D5W 50 ML IV SCH (08:56)
[2022-03-16] MEDS: LINEZOLID 600MG/300ML 300 ML IV SCH ×2 (09:36→21:25)
[2022-03-16] MEDS: ENOXAPARIN SOD 40 MG/0.4 ML SYRINGE SC SCH ×2 (10:00→21:25)
[2022-03-16] MEDS: PANTOPRAZOLE 40 MG/10 ML VIAL INJ IV SCH ×2 (10:16→21:24)
[2022-03-16] MEDS: AMIODARONE HCL 200 MG TAB PO SCH ×2 (10:16→21:25)
[2022-03-16] MEDS: SODIUM CHLOR 0.9% PF (SALINE LOCK) 10ML VIAL/SYR IV SCH ×2 (10:16→21:24)
[2022-03-16] MEDS: INSULIN LANTUS (GLARGINE) 1 /0.01ml (100units/ml) SC SCH ×2 (10:35→21:46)
[2022-03-16] MEDS: SODIUM FERR GLUC 62.5MG/5ML 125 MG in SODIUM CHL 0.9% 100 ML IV SCH (12:51)
[2022-03-16] MEDS: Glucerna Carbsteady SHAKE Vanilla 8oz PO SCH (17:29)
[2022-03-16] MEDS: fentaNYL Drip 2500mCg/250mlNS 250 ML IV SCH (19:00)
[2022-03-16] MEDS: PROPOFOL 100 ML IV SCH (21:24)
[2022-03-16] MEDS: FUROSEMIDE 40 MG/4 ML VIAL IV SCH (21:24)
[2022-03-16] MEDS: MIDAZOLAM DRIP 50 mg/50mL 50 ML IV SCH (21:24)
[2022-03-17] VITALS (31 sets, daily range): BP systolic 91–121; BP diastolic 51–70
[2022-03-17 00:51] LABS: Eosinophils # (auto) 0.1 10 ^3/uL (0-0.8); Lymphocytes # (auto) 1.8 10 ^3/uL (0.4-5.4); Nucleated Red Blood Cells % 0.3 %
[2022-03-17 00:53] LABS: Basophils # (auto) 0.1 10 ^3/uL (0-0.2); Basophils % (auto) 0.6 % (0.0-2.0); Eosinophils % (auto) 1.3 % (0.0-7.0); Hematocrit 30.4 % (36.0-46.0); Mean Corpuscular Hemoglobin 29.5 pg (28.0-32.0); Mean Corpuscular Hgb Conc. 33.1 g/dL (32.0-36.0); Mean Corpuscular Volume 89.2 fL (80.0-100.0); Monocytes # (auto) 0.8 10 ^3/uL (0-1.3); Neutrophils # (auto) 6.6 10 ^3/uL (1.6-8.6); Neutrophils % (auto) 70.1 % (37.0-80.0); Red Blood Cells 3.41 10^6/uL (4.0-5.20); Red Cell Distribution Width 14.2 % (11.8-14.3); White Blood Cell 9.4 10^3/uL (4.4-10.8)
[2022-03-17 01:22] LABS: BUN/Creatinine Ratio 26.9; Calcium 9.6 mg/dL (8.5-10.1); Potassium 3.2 mmol/L (3.5-5.1)
[2022-03-17 01:23] LABS: Albumin 3.1 g/dL (3.4-5.0); Bilirubin, Total 0.8 mg/dL (0.2-1.0); Magnesium 2.3 mg/dL (1.6-2.6); Total Protein 6.8 g/dL (6.4-8.2)
[2022-03-17] MEDS: MIDODRINE HCL 10 MG TAB PO SCH ×3 (05:44→18:27)
[2022-03-17] MEDS: POTASSIUM CHL 20MEQ/100ML 100 ML IV SCH ×2 (05:45→08:31)
[2022-03-17] MEDS: ACCU-CHEK COMFORT CURVE STRIP VI SCH ×3 (05:45→18:07)
[2022-03-17] MEDS: InsuLIN REG 1unit/0.01ml Soln (100units/ml) SC SCH ×3 (05:45→18:31)
[2022-03-17] MEDS: Glucerna Carbsteady SHAKE Vanilla 8oz PO SCH ×3 (08:00→18:07)
[2022-03-17] MEDS: ENOXAPARIN SOD 40 MG/0.4 ML SYRINGE SC SCH ×2 (09:16→22:27)
[2022-03-17] MEDS: FUROSEMIDE 40 MG/4 ML VIAL IV SCH (09:16)
[2022-03-17] MEDS: AMIODARONE HCL 200 MG TAB PO SCH ×2 (09:17→22:22)
[2022-03-17] MEDS: LINEZOLID 600MG/300ML 300 ML IV SCH (09:17)
[2022-03-17] MEDS: PANTOPRAZOLE 40 MG/10 ML VIAL INJ IV SCH ×2 (09:17→22:22)
[2022-03-17] MEDS: cefTRIAXone 1GM/50ML D5W 50 ML IV SCH (09:21)
[2022-03-17] MEDS: SODIUM CHLOR 0.9% PF (SALINE LOCK) 10ML VIAL/SYR IV SCH ×2 (09:24→22:30)
[2022-03-17] MEDS: INSULIN LANTUS (GLARGINE) 1 /0.01ml (100units/ml) SC SCH ×2 (09:24→22:21)
[2022-03-17] MEDS ORDERED: ERGOCALCIFEROL 50,000 UNIT(1.25MG) CAP PO SCH (10:00)
[2022-03-17] MEDS: SODIUM FERR GLUC 62.5MG/5ML 125 MG in SODIUM CHL 0.9% 100 ML IV SCH (13:13)
[2022-03-18 05:00] VITALS: BP 113/60
[2022-03-18] MEDS: ACCU-CHEK COMFORT CURVE STRIP VI SCH ×5 (05:46→23:40)
[2022-03-18] MEDS: InsuLIN REG 1unit/0.01ml Soln (100units/ml) SC SCH ×5 (05:46→23:43)
[2022-03-18] MEDS: MIDODRINE HCL 10 MG TAB PO SCH ×3 (06:16→18:00)
[2022-03-18 06:33] LABS: Basophils # (auto) 0.1 10 ^3/uL (0-0.2); Eosinophils # (auto) 0.2 10 ^3/uL (0-0.8)
[2022-03-18 06:37] LABS: Basophils % (auto) 0.6 % (0.0-2.0); Hemoglobin 10.4 g/dL (12.2-16.2); Lymphocytes # (auto) 2.4 10 ^3/uL (0.4-5.4); Lymphocytes % (auto) 23.2 % (10.0-50.0); Mean Corpuscular Hemoglobin 29.3 pg (28.0-32.0); Mean Corpuscular Hgb Conc. 32.5 g/dL (32.0-36.0); Mean Corpuscular Volume 90.2 fL (80.0-100.0); Monocytes # (auto) 1.3 10 ^3/uL (0-1.3); Neutrophils # (auto) 6.2 10 ^3/uL (1.6-8.6); Neutrophils % (auto) 61.2 % (37.0-80.0); Nucleated Red Blood Cells % 0.3 %; Red Blood Cells 3.55 10^6/uL (4.0-5.20); White Blood Cell 10.1 10^3/uL (4.4-10.8)
[2022-03-18 06:38] LABS: INR 1.13 (0.9-1.15)
[2022-03-18 06:49] LABS: BUN/Creatinine Ratio 25.7; Calcium 9.7 mg/dL (8.5-10.1); Magnesium 2.2 mg/dL (1.6-2.6); Phosphorus 3.4 mg/dL (2.5-4.90); Potassium 3.2 mmol/L (3.5-5.1)
[2022-03-18] MEDS: Glucerna Carbsteady SHAKE Vanilla 8oz PO SCH ×3 (07:47→17:21)
[2022-03-18 09:00] VITALS: BP 130/71
[2022-03-18] MEDS: PANTOPRAZOLE 40 MG/10 ML VIAL INJ IV SCH ×2 (09:47→21:36)
[2022-03-18] MEDS: SODIUM CHLOR 0.9% PF (SALINE LOCK) 10ML VIAL/SYR IV SCH ×2 (09:54→21:36)
[2022-03-18] MEDS: FUROSEMIDE 40 MG/4 ML VIAL IV SCH (09:54)
[2022-03-18] MEDS: ENOXAPARIN SOD 40 MG/0.4 ML SYRINGE SC SCH ×2 (09:54→21:36)
[2022-03-18] MEDS: INSULIN LANTUS (GLARGINE) 1 /0.01ml (100units/ml) SC SCH ×2 (09:55→21:38)
[2022-03-18] MEDS: AMIODARONE HCL 200 MG TAB PO SCH ×2 (12:23→21:36)
[2022-03-18 13:00] VITALS: BP 130/59
[2022-03-18] MEDS: SODIUM FERR GLUC 62.5MG/5ML 125 MG in SODIUM CHL 0.9% 100 ML IV SCH (13:55)
[2022-03-18 17:50] VITALS: BP 116/69
[2022-03-18 22:00] VITALS: BP 108/67
[2022-03-19] MEDS: ACETAMINOPHEN 325 MG TAB PO PRN (02:08)
[2022-03-19 05:00] VITALS: BP 103/53
[2022-03-19] MEDS: ACCU-CHEK COMFORT CURVE STRIP VI SCH ×2 (05:46→12:27)
[2022-03-19] MEDS: InsuLIN REG 1unit/0.01ml Soln (100units/ml) SC SCH ×2 (05:46→12:30)
[2022-03-19] MEDS: MIDODRINE HCL 10 MG TAB PO SCH ×2 (07:07→12:31)
[2022-03-19] MEDS: Glucerna Carbsteady SHAKE Vanilla 8oz PO SCH ×2 (08:00→12:31)
[2022-03-19 09:00] VITALS: BP 102/67
[2022-03-19] MEDS: PANTOPRAZOLE 40 MG/10 ML VIAL INJ IV SCH (10:25)
[2022-03-19] MEDS: FUROSEMIDE 40 MG/4 ML VIAL IV SCH (10:26)
[2022-03-19] MEDS: ENOXAPARIN SOD 40 MG/0.4 ML SYRINGE SC SCH (10:26)
[2022-03-19] MEDS: AMIODARONE HCL 200 MG TAB PO SCH (10:26)
[2022-03-19] MEDS: SODIUM CHLOR 0.9% PF (SALINE LOCK) 10ML VIAL/SYR IV SCH (10:27)
[2022-03-19 10:35] LABS: Basophils # (auto) 0.1 10 ^3/uL (0-0.2); Basophils % (auto) 0.6 % (0.0-2.0); Eosinophils # (auto) 0.2 10 ^3/uL (0-0.8); Eosinophils % (auto) 2.1 % (0.0-7.0); Hematocrit 32.9 % (36.0-46.0); Hemoglobin 10.7 g/dL (12.2-16.2); Lymphocytes # (auto) 2.9 10 ^3/uL (0.4-5.4); Lymphocytes % (auto) 26.8 % (10.0-50.0); Mean Corpuscular Hgb Conc. 32.7 g/dL (32.0-36.0); Mean Corpuscular Volume 88.7 fL (80.0-100.0); Monocytes # (auto) 0.9 10 ^3/uL (0-1.3); Neutrophils # (auto) 6.8 10 ^3/uL (1.6-8.6); Neutrophils % (auto) 62.5 % (37.0-80.0); Nucleated Red Blood Cells % 0.7 %; Red Cell Distribution Width 14.2 % (11.8-14.3); White Blood Cell 10.8 10^3/uL (4.4-10.8)
[2022-03-19 10:45] LABS: Calcium 9.9 mg/dL (8.5-10.1); Magnesium 1.9 mg/dL (1.6-2.6); Potassium 3.2 mmol/L (3.5-5.1)
[2022-03-19 10:47] LABS: BUN/Creatinine Ratio 23.1
[2022-03-19] MEDS: INSULIN LANTUS (GLARGINE) 1 /0.01ml (100units/ml) SC SCH (10:56)
[2022-03-19] MEDS: SODIUM FERR GLUC 62.5MG/5ML 125 MG in SODIUM CHL 0.9% 100 ML IV SCH (12:31)
[2022-03-19 13:00] VITALS: BP 119/71
[2022-03-19] MEDS ORDERED: ALPRAZolam 0.5 MG TAB PO PRN (15:00)
[2022-03-19] MEDS ORDERED: ROCURONIUM 10MG/ML 10ML VIAL IV ONE (15:33)
[2022-03-19] MEDS ORDERED: ETOMIDATE (2MG/ML) 20ML VIAL IV ONE (15:33)
[2022-03-19] MEDS ORDERED: EPINEPHrine HCL 1 MG/10 ML SYRG ONE (16:00)
[2022-03-19] MEDS ORDERED: EPINEPHrine HCL 1 MG/10 ML SYRG IV ONE (20:49)
== END 2022-03-19 20:50 | DRG 870 ==
LOC: ER 15:14 → EDBD 15:14 → TELE 02-28 00:24 → ICU WEST 03-01 02:45 → TELE-WESTW 03-17 12:19 → ICU WEST 03-19 15:48
PROVIDERS: ADMIT Nurse Practitioner; ATTEND Internal Medicine Pulmonary Disease
PROC: 5A1955Z Respiratory Ventilation, Greater than 96 Consecutive Hours (ICD-10-PCS; principal; 2022-02-27)
PROC: 0BH17EZ Insertion of Endotracheal Airway into Trachea, Via Natural or Artificial Opening (ICD-10-PCS; 2022-02-27)
PROC: 03HY32Z Insertion of Monitoring Device into Upper Artery, Percutaneous Approach (ICD-10-PCS; 2022-02-28)
PROC: 02HV33Z Insertion of Infusion Device into Superior Vena Cava, Percutaneous Approach (ICD-10-PCS; 2022-03-06)
PROC: B548ZZA Ultrasonography of Superior Vena Cava, Guidance (ICD-10-PCS; 2022-03-06)
PROC: 5A12012 Performance of Cardiac Output, Single, Manual (ICD-10-PCS; 2022-03-19)
PROC: 05HM33Z Insertion of Infusion Device into Right Internal Jugular Vein, Percutaneous Approach (ICD-10-PCS; 2022-03-19)
PROC: 4A143B0 Monitoring of Venous Pressure, Central, Percutaneous Approach (ICD-10-PCS; 2022-03-19)
DX: A41.9 Sepsis, unspecified organism (principal); E11.10 Type 2 diabetes mellitus with ketoacidosis without coma; J15.211 Pneumonia due to Methicillin susceptible Staphylococcus aureus; R65.21 Severe sepsis with septic shock; J96.01 Acute respiratory failure with hypoxia; G93.41 Metabolic encephalopathy; N17.0 Acute kidney failure with tubular necrosis; J81.0 Acute pulmonary edema; N39.0 Urinary tract infection, site not specified; E87.0 Hyperosmolality and hypernatremia; I82.432 Acute embolism and thrombosis of left popliteal vein; I47.20 Ventricular tachycardia, unspecified; I42.1 Obstructive hypertrophic cardiomyopathy; K92.2 Gastrointestinal hemorrhage, unspecified; I47.1 Supraventricular tachycardia; J98.11 Atelectasis; Z68.45 Body mass index [BMI] 70 or greater, adult; I46.9 Cardiac arrest, cause unspecified; D69.6 Thrombocytopenia, unspecified; E83.42 Hypomagnesemia; Z53.9 Procedure and treatment not carried out, unspecified reason; I27.20 Pulmonary hypertension, unspecified; E66.01 Morbid (severe) obesity due to excess calories; E11.22 Type 2 diabetes mellitus with diabetic chronic kidney disease; J45.909 Unspecified asthma, uncomplicated; N18.31 Chronic kidney disease, stage 3a; Z20.822 Contact with and (suspected) exposure to COVID-19; E87.6 Hypokalemia; R57.1 Hypovolemic shock
CPT/HCPCS: 31500; 36415; 36556; 36569; 36600; 70450; 71045; 74176; 80048; 80053; 80061; 80202; 80320; 81001; 82010; 82306; 82550; 82805; 82962; 83036; 83540; 83550; 83605; 83735; 83880; 83930; 83970; 84100; 84132; 84439; 84443; 84478; 84484; 85007; 85025; 85027; 85610; 85730; 86850; 86900; 86901; 87040; 87070; 87077; 87081; 87086; 87088; 87186; 87205; 87426; 87804; 92610; 92950; 93005; 93306; 93970; 94002; 94003; 94640; 96361; 96365; 96372; 96375; 97110; 97163; 99291; A4618; C9113; G0378; J0171; J0330; J0690; J0696; J1815; J2185; J2250; J2405; J2543; J2704; J3480; J7060; P9047